=== PATIENT | female | born 1935 | race Caucasian/White ===

== ENCOUNTER 2018-11-06 16:28 | Observation (INO) | payer MEDICARE, OTHER ==
--- OUTSIDE RECORDS SUMMARY | 2018-11-06 16:33 | XMS REPORT | Continuity of Care Document ---
:1935 External Reference #:[id number] Author Name Minesh Medina Care Team Providers Name Role Phone Lavonne Warren MD Primary Care Physician Unavailable Payers Date Identification Numbers Payment Provider Subscriber Effective: 2001 Policy Number: [id number] Medicare Malina Arambula PayID: [id number] [address] [place] [address] Policy Number: [id number] [employer] Malina Arambula PayID: [id number] [address] [place] [address] Advance Directives Type Date Description Status Comment Other Directive 01/19/2017 Health Care Proxy Current and Verified Problems Active Problems Provider Date Major depressive disorder Wes Addison M.D.,FACP Onset: 10/15/2017 Obstructive sleep apnea syndrome Nicole Whalen DNP, RN, [facility]- Onset: Chronic obstructive lung disease Renetta Hernandez MD Onset: 08/04/2014 Note: vs asthma Scar emphysema Renetta Hernandez MD Onset: 11/13/2015 Allergic rhinitis Renetta Hernandez MD Onset: 11/13/2015 Mixed hyperlipidemia Wes Addison M.D.,FACP Onset: 10/15/2017 Candidiasis of the esophagus Lavonne Warren MD Onset: 10/06/2018 Note: diagnosed with biopsy Inactive Problems Acute sinusitis Renetta Hernandez MD Onset: 10/09/2015 Inactive: 10/15/2017 Chronic obstructive pulmonary disease with Renetta Hernandez MD Onset: 2015 (acute) exacerbation Inactive: 10/15/2017 Dyspnea Renetta Hernandez MD Onset: 08/04/2014 Inactive: 03/03/2018 Resolved Problems Chronic obstructive lung disease Renetta Hernandez MD Onset: 02/06/2015 Resolved: 03/03/2018 Acute upper respiratory infection, Kushal Mohan M.D. Onset: 11/17/2017 unspecified Resolved: 03/03/2018 Pulmonary emphysema Renetta Hernandez MD Onset: 08/04/2014 Resolved: 03/03/2018 Disorder of lung Renetta Hernandez MD Onset: 08/06/2015 Resolved: 03/03/2018 Family History Date Family Member(s) Observation Comments Father of heart failure at age 89 Father due to CHF () Mother for renal failure at age 85 Mother due to Renal Failure () Mother Obesity Mother Hypertension Mother Diabetes Type II Siblings None Social History Type Date Description Comments Sex Unknown Marital Status Lives With Alone Occupation Retired and volunteering Tobacco Use Start: Unknown Quit at age 41 ETOH Use 03/03/2018 Drinks 2 Alcoholic Beverages Per Day Tobacco Use Start: Unknown Patient is a former End: Unknown smoker Recreational Drug Use Denies Drug Use Tobacco Use Start: Unknown Light tobacco smoker smoked for 25 yrs (10 or fewer 1/2pk qd cigarettes/day) Smoking Status Reviewed: 10/26/18 Light tobacco smoker smoked for 25 yrs (10 or fewer 1/2pk qd cigarettes/day) Exercise Type/Frequency Walks daily short distance to walk dog Allergies, Adverse Reactions, Alerts Active Allergies Reaction Severity Comments Date Iodine 08/04/2014 Iodine 08/04/2014 Seasonal 08/04/2014 Animal Hair/Dander 08/04/2014 Inactive Allergies NKDA 08/04/2014 Medications Active Medications SIG Qnty Indications Ordering Date Provider Pantoprazole Sodium Take one tablet 60tabs B37.81 Lavonne Warren MD 2018 twice a day 40mg Tablets DR Ondansetron HCL one by mouth every 8 30tabs Lavonne Warren MD 10/08/2018 4mg hours as needed for Tablets nausea Meclizine HCL 1 tablet every 8 30tabs H81.10 Tatiana Davidson, 09/03/2018 25mg hours as needed for N.P. Tablets vertigo Amlodipine Besylate 1 by mouth every day 30tabs I10 Lavonne Warren MD 2018 10mg Tablets Candesartan 1 by mouth every day 30tabs Lavonne Warren MD 08/20/2018 Cilexetil 16mg Tablets Shingrix 0.5 milliliters 2units Wes Bain 03/03/2018 50mcg/0.5ML intramuscular now Iveth Addison,FACP Suspension Rec and 2-3 months later repeat Symbicort 2 puffs twice daily 12gm J44.9 Alley Cisneros, 11/09/2017 N.P. 160-4.5mcg/Act Aerosol Effexor XR 1 by mouth every day 30caps Wes Bain 11/27/2016 150mg Caps plus 75 mg tab Iveth Addison,FACP ER 24HR Proair HFA 2 puffs by mouth 25.5gm Wes Bain 11/27/2016 four times a day as Iveth Addison,FACP 108(90Base) mcg/Act needed Aerosol Abilify one by mouth at 30tabs Other Ordering 11/27/2016 2mg Tablets bedtime Provider Albuterol Sulfate puff every 6 hours Unknown 08/03/2014 as needed Spiriva Handihaler 1 inhalation by 90caps Renetta Hernandez, 08/03/2014 mouth every morning 18mcg Capsules Coq-10 1 by mouth every day Unknown 08/03/2014 100mg Capsules Singulair 1 by mouth every day 90tabs Wes Bain 08/03/2014 10mg Iveth Addison,FACP Tablets Adderall XR one tablet every 30caps Wes Bain 15mg Caps morning Iveth Addison,FACP ER 24HR Aspirin 1 by mouth every day Unknown 81mg Tablets Vitamin D3 by mouth everyday Unknown 1000Unit Tablets Effexor XR 1 by mouth every day Unknown 75mg Caps ER 24HR History Medications Ondansetron HCL take one tablet 30tabs Lavonne Warren MD 09/15/2018 - 4mg every 8 hours 10/07/2018 Tablets for nausea as needed Pantoprazole Sodium 2 by mouth 60tabs K21.9 Lavonne Warren MD 08/25/2018 - every day 10/13/2018 40mg Tablets Amlodipine Besylate 1 by mouth 30tabs I10 Lavonne Warren MD 08/19/2018 - 5mg every day 08/25/2018 Tablets Omeprazole 1 by mouth 14caps K21.9 Lavonne Warren MD 08/19/2018 - 20mg every day (not 09/03/[address] taking) Candesartan Cilexetil 1 by mouth 90tabs Lavonne Warren MD 12/25/2017 - every day 08/19/2018 16mg Tablets Amoxicillin/Clavulana 1 by mouth 20tabs J06.9 [place] 11/17/2017 - te Potassium twice a day Iveth Mohan 11/27/2017 500-125mg Tablets Oxybutynin Chloride take one tablet 60tabs Other Ordering 11/27/2016 - 5mg by mouth at hs Provider 01/15/2017 Tablets Omeprazole 1 by mouth bid 90caps Other Ordering 11/27/2016 - 20mg prn Provider 10/15/[address] Prednisone 20mg daily 14tabs J44.1 Renetta Hernadnez, 11/13/2015 - 20mg Tablets [place] 11/27/2016 Zithromax Z-Henry 2 tabs day#1, 1 6tabs J44.1 Renetta Hernandez, 11/13/2015 - 250mg tab daily for 4 MD 11/27/2016 Tablets days Dymista 1-2 spray twice 46gm J30.9 Renetta Hernandez, 11/13/2015 - 137-50mcg/Act a day [place] 11/27/2016 Suspension Cefuroxime Axetil 1 tab by mouth 20tabs J01.80 Renetta Hernandez, 10/09/2015 - 250mg twice a day [place] 11/27/2016 Tablets Vitamin D High 1 by mouth Unknown 08/05/2015 - Potency every day 11/27/2016 1000Unit Capsules Cymbalta 1 by mouth Unknown 08/05/2015 - 60mg Caps DR every day 11/27/2016 Part Wellbutrin SR 1 by mouth once Unknown 10/04/2014 - 150mg a day 11/27/2016 Tablets ER 12HR Symbicort 2 puffs twice a 60units J44.9 Renetta Hernandez, 08/04/2014 - day MD 11/27/2016 160-4.5mcg/Act Aerosol Effexor XR 1 by mouth Unknown 08/03/2014 - 150mg Caps every day 08/05/2015 ER 24HR Diovan 1 by mouth 90tabs Regla 08/03/2014 - 160mg Tablets every day RAMESH Orosco 12/25/2017 Aspir-81 1 by mouth Unknown 08/03/2014 - 81mg Tablets every day 11/27/2016 Vitamin B Complex 1 by mouth Unknown 08/03/2014 - every day 11/27/2016 Tablets Advair Diskus 1 puff by mouth Unknown 08/03/2014 - twice a day 10/15/2017 500-50mcg/Dose Aerosol Melatonin 1 by mouth Unknown 08/03/2014 - 5mg Capsules every night at 11/27/2016 bedtime Wellbutrin SR 1 by mouth Unknown 08/02/2014 - 150mg twice a day 10/04/2014 Tablets ER 12HR Co Q 10 1 by mouth Unknown - 100mg Capsules every day 10/15/2017 Medications Administered in Office Medication SIG Qnty Indications Ordering Provider Date Inj, Regadenoson, 0.1 MG Kevyn Sheehan M.D. 03/05/2012 Injection Technetium TC 99M Tetrofosmin, Kevyn Sheehan M.D. 03/05/2012 Per Unit Dose Up To 40 Millicuries Injection Immunizations CPT Code Status Date Vaccine Lot # 47818 Given 03/12/2018 Zoster (Shingles) Vaccine (HZV), Recombinant, Subunit, Adjuvanted 59318 Given 03/03/2018 Fluzone High Dose [id number] 65013 Given 01/15/2017 Pneumococcal Conjugate Vaccine 13 Valent For [id number] Intramuscular Use 17101 Given 02/04/2015 Influenza Virus 3Yrs & Over 27760 Given 10/20/2008 Pneumonia Vaccine Vital Signs Date Vital Result Comment 10/26/2018 2:09pm Height 66 inches 5'6" Weight 166.00 lb Heart Rate 80 /min BP Systolic Sitting 133 mmHg BP Diastolic Sitting 74 mmHg Body Temperature 97.3 F O2 % BldC Oximetry 95 % BMI (Body Mass Index) 26.8 kg/m2 10/13/2018 11:08am Height 66 inches 5'6" Weight 172.00 lb Heart Rate 80 /min BP Systolic Sitting 127 mmHg BP Diastolic Sitting 78 mmHg Body Temperature 97.0 F O2 % BldC Oximetry 94 % BMI (Body Mass Index) 27.8 kg/m2 09/07/2018 10:58am Height 66 inches 5'6" Weight 179.00 lb Heart Rate 80 /min BP Systolic Sitting 144 mmHg BP Diastolic Sitting 72 mmHg Body Temperature 96.9 F O2 % BldC Oximetry 97 % BMI (Body Mass Index) 28.9 kg/m2 09/03/2018 11:13am Height 66 inches 5'6" Weight 179.00 lb Heart Rate 83 /min BP Systolic 142 mmHg BP Diastolic 71 mmHg Body Temperature 96.7 F O2 % BldC Oximetry 98 % BMI (Body Mass Index) 28.9 kg/m2 08/25/2018 11:02am Height 66 inches 5'6" Weight 181.00 lb Heart Rate 85 /min BP Systolic Sitting 172 mmHg BP Diastolic Sitting 83 mmHg Body Temperature 96.9 F O2 % BldC Oximetry 98 % BMI (Body Mass Index) 29.2 kg/m2 08/19/2018 3:22pm Height 66 inches 5'6" Weight 185.12 lb Heart Rate 82 /min BP Systolic 184 mmHg 175/102 BP Diastolic 88 mmHg 175/102 Body Temperature 97.4 F O2 % BldC Oximetry 97 % BMI (Body Mass Index) 29.9 kg/m2 08/12/2018 11:10am Height 66 inches 5'6" Weight 183.00 lb Heart Rate 90 /min BP Systolic Sitting 158 mmHg BP Diastolic Sitting 85 mmHg Body Temperature 96.8 F O2 % BldC Oximetry 98 % BMI (Body Mass Index) 29.5 kg/m2 07/22/2018 11:21am Height 66 inches 5'6" Weight 188.25 lb Heart Rate 80 /min BP Systolic 142 mmHg BP Diastolic 60 mmHg Body Temperature 96.8 F O2 % BldC Oximetry 97 % BMI (Body Mass Index) 30.4 kg/m2 05/07/2018 1:24pm Height 66 inches 5'6" Weight 183.00 lb Heart Rate 88 /min BP Systolic Sitting 160 mmHg BP Diastolic Sitting 86 mmHg Respiratory Rate 18 /min O2 % BldC Oximetry 96 % on Ra BMI (Body Mass Index) 29.5 kg/m2 03/03/2018 2:59pm Height 66 inches 5'6" Weight 180.00 lb Heart Rate 79 /min BP Systolic Sitting 136 mmHg BP Diastolic Sitting 80 mmHg Body Temperature 98.3 F O2 % BldC Oximetry 95 % BMI (Body Mass Index) 29.0 kg/m2 02/04/2018 10:32am Height 67 inches 5'7" Weight 181.38 lb Heart Rate 68 /min BP Systolic Sitting 146 mmHg Lue regular cuff BP Diastolic Sitting 84 mmHg Lue regular cuff Respiratory Rate 12 /min O2 % BldC Oximetry 96 % BMI (Body Mass Index) 28.4 kg/m2 01/06/2018 11:10am Height 67 inches 5'7" Weight 175.00 lb Heart Rate 72 /min BP Systolic Sitting 116 mmHg BP Diastolic Sitting 86 mmHg Respiratory Rate 14 /min O2 % BldC Oximetry 97 % BMI (Body Mass Index) 27.4 kg/m2 Neck Circumference in inches 16.25 11/17/2017 1:07pm Height 67 inches 5'7" Weight 180.00 lb Heart Rate 97 /min BP Systolic Sitting 124 mmHg BP Diastolic Sitting 60 mmHg Body Temperature 97.4 F O2 % BldC Oximetry 94 % BMI (Body Mass Index) 28.2 kg/m2 11/09/2017 11:43am Height 67 inches 5'7" Weight 184.00 lb Heart Rate 72 /min BP Systolic Sitting 128 mmHg BP Diastolic Sitting 80 mmHg Respiratory Rate 14 /min O2 % BldC Oximetry 94 % BMI (Body Mass Index) 28.8 kg/m2 10/15/2017 10:58am Weight 184.00 lb Heart Rate 76 /min BP Systolic Sitting 142 mmHg BP Diastolic Sitting 70 mmHg BP Systolic Recheck 128 mmHg BP Diastolic Recheck 84 mmHg Body Temperature 98.1 F O2 % BldC Oximetry 97 % 07/15/2017 12:03pm Weight 186.00 lb Heart Rate 73 /min BP Systolic 134 mmHg BP Diastolic 82 mmHg Body Temperature 97.9 F O2 % BldC Oximetry 97 % 01/15/2017 11:05am Height 67.50 inches 5'7.50" Weight 189.00 lb Heart Rate 77 /min BP Systolic 132 mmHg BP Diastolic 70 mmHg Body Temperature 97.1 F O2 % BldC Oximetry 97 % BMI (Body Mass Index) 29.2 kg/m2 11/13/2015 2:07pm Heart Rate 82 /min BP Systolic Sitting 132 mmHg BP Diastolic Sitting 80 mmHg Respiratory Rate 16 /min O2 % BldC Oximetry 97 % 10/09/2015 10:51am Height 67.5 inches 5'7.50" Weight 185.00 lb reported Heart Rate 84 /min BP Systolic 150 mmHg BP Diastolic 84 mmHg Respiratory Rate 14 /min O2 % BldC Oximetry 96 % BMI (Body Mass Index) 28.5 kg/m2 08/06/2015 11:04am Height 67.5 inches 5'7.50" Heart Rate 77 /min BP Systolic 124 mmHg BP Diastolic 80 mmHg Respiratory Rate 14 /min O2 % BldC Oximetry 97 % 02/06/2015 10:59am Heart Rate 77 /min BP Systolic 162 mmHg BP Diastolic 80 mmHg Respiratory Rate 14 /min O2 % BldC Oximetry 98 % 10/05/2014 11:43am Heart Rate 76 /min BP Systolic Sitting 138 mmHg BP Diastolic Sitting 82 mmHg Respiratory Rate 20 /min O2 % BldC Oximetry 98 % 08/04/2014 3:37pm Height 67.5 inches 5'7.50" Weight 180.00 lb Heart Rate 78 /min BP Systolic Sitting 146 mmHg BP Diastolic Sitting 88 mmHg Respiratory Rate 20 /min Body Temperature 98.1 F O2 % BldC Oximetry 95 % BMI (Body Mass Index) 27.8 kg/m2 Neck Circumference in inches 15 Results Test Date Facility Test Result H/L Range Note Laboratory test 09/30/2018 [facility] Surgical SEE RESULT 1 , [address] [place] [address] [phone] Laboratory test 09/30/2018 [facility] Clotest SEE RESULT 3 , [address] [place] [address] [phone] CBC Auto Diff 08/12/2018 [facility] White Blood 10.4 10^3/uL N 3.5-10.[address] [place] [address] [phone] Red Blood Count 4.59 10^6/uL N 3.70-4.87 Hemoglobin 13.1 g/dL N 12.0-16.0 Hematocrit 41 % N 33-41 Mean Corpuscular Volume 88 fL N 80-97 Mean Corpuscular Hemoglobin 29 pg N 27-31 Mean Corpuscular HGB Conc 32 g/dL N 31-36 Red Cell Distribution Width 16 % High 10.5-15 Platelet Count 367 10^3/uL N 150-450 Mean Platelet Volume 8.0 fL N 7.4-10.4 Abs Neutrophils 7.6 10^3/uL N 1.5-7.7 Abs Lymphocytes 1.8 10^3/uL N 1.0-4.8 Abs Monocytes 1.0 10^3/uL High 0-0.8 Abs Eosinophils 0 10^3/uL N 0-0.6 Abs Basophils 0 10^3/uL N 0-0.2 Abs Nucleated RBC 0 10^3/uL Granulocyte % 72.6 % Lymphocyte % 17.2 % Monocyte % 9.4 % Eosinophil % 0.4 % Basophil % 0.4 % Nucleated Red Blood Cells % 0 Comp Metabolic Panel 08/12/2018 [facility] Sodium 144 mmol/L N 135-[address] [place] [address] [phone] Potassium 3.8 mmol/L N 3.5-5.0 Chloride 102 mmol/L N 101-111 Co2 Carbon Dioxide 30 mmol/L N 22-32 Anion Gap 12 mmol/L High 2-11 Glucose 102 mg/dL High 70-100 Blood Urea Nitrogen 16 mg/dL N 6-24 Creatinine 0.84 mg/dL N 0.51-0.95 BUN/Creatinine Ratio 19.0 N 8-20 Calcium 10.0 mg/dL N 8.6-10.3 Total Protein 6.9 g/dL N 6.4-8.9 Albumin 4.7 g/dL N 3.2-5.2 Globulin 2.2 g/dL N 2-4 Albumin/Globulin Ratio 2.1 N 1-3 Total Bilirubin 0.40 mg/dL N 0.2-1.0 Alkaline Phosphatase 47 U/L N 34-104 Alt 21 U/L N 7-52 Ast 21 U/L N 13-39 Egfr Non- 64.9 >60 Egfr 78.5 >60 5 Laboratory test 08/12/2018 [facility] TSH (Thyroid 2.05 mcIU/mL N 0.34-5.[address] Stim [place]orm) [place] [address] [phone] Vitamin B12 201 pg/mL N 180-914 6 Vitamin D Total 25(Oh) 65.3 ng/mL High 20-50 Thyroid Function 10/22/2017 [facility] Thyroid Stim 3.6 mIU/L 0.3-4.2 [address] [place] [address] [place] [address] [phone] Laboratory test 10/22/2017 [facility] Vitamin B12 451 pg/mL N 180-914 8 finding [address] [place] [address] [phone] Vitamin D Total 25(Oh) 34.0 ng/mL N 20-50 CBC Auto Diff 10/02/2017 [facility] White Blood 7.4 10^3/uL N 3.5-10.8 [address] [facility] [place] [address] [phone] Red Blood Count 4.72 10^6/uL N 4.0-5.4 Hemoglobin 12.5 g/dL N 12.0-16.0 Hematocrit 39 % N 35-47 Mean Corpuscular Volume 83 fL N 80-97 Mean Corpuscular Hemoglobin 27 pg N 27-31 Mean Corpuscular HGB Conc 32 g/dL N 31-36 Red Cell Distribution Width 16 % High 10.5-15 Platelet Count 371 10^3/uL N 150-450 Mean Platelet Volume 8.2 um3 N 7.4-10.4 Abs Neutrophils 4.4 10^3/uL N 1.5-7.7 Abs Lymphocytes 2.1 10^3/uL N 1.0-4.8 Abs Monocytes 0.6 10^3/uL N 0-0.8 Abs Eosinophils 0.2 10^3/uL N 0-0.6 Abs Basophils 0.1 10^3/uL N 0-0.2 Abs Nucleated RBC 0 10^3/uL Granulocyte % 59.7 % N 38-83 Lymphocyte % 29.1 % N 25-47 Monocyte % 8.2 % High 0-7 Eosinophil % 2.1 % N 0-6 Basophil % 0.9 % N 0-2 Nucleated Red Blood Cells % 0 Comp Metabolic Panel 10/02/2017 [facility] Sodium 142 mmol/L N 139-145 [address] [place] [address] [phone] Potassium 4.2 mmol/L N 3.5-5.0 Chloride 104 mmol/L N 101-111 Co2 Carbon Dioxide 28 mmol/L N 22-32 Anion Gap 10 mmol/L N 2-11 Glucose 109 mg/dL High 70-100 Blood Urea Nitrogen 18 mg/dL N 6-24 Creatinine 0.94 mg/dL N 0.51-0.95 BUN/Creatinine Ratio 19.1 N 8-20 Calcium 9.5 mg/dL N 8.6-10.3 Total Protein 6.8 g/dL N 6.4-8.9 Albumin 4.3 g/dL N 3.2-5.2 Globulin 2.5 g/dL N 2-4 Albumin/Globulin Ratio 1.7 N 1-3 Total Bilirubin 0.40 mg/dL N 0.2-1.0 Alkaline Phosphatase 48 U/L N 34-104 Alt 17 U/L N 7-52 Ast 18 U/L N 13-39 Egfr Non- 57.2 >60 Egfr 73.5 >60 9 Lipid Profile 10/02/2017 [facility] Triglycerides 152 mg/dL 10 (Trig/Chol/HDL) [address] [place] [address] [phone] Cholesterol 268 mg/dL 11 HDL Cholesterol 71.6 mg/dL 12 LDL Cholesterol 166 mg/dL 13 Quantiferon Gold 10/03/2015 [facility] M tuberculosis Negative N Negative TB [address] [place] [address] [phone] Tuberculosis Antigen Value 0.01 IU/mL N 14 CBC Auto Diff 10/03/2015 [facility] White Blood 10.0 10^3/uL N 3.5-10.[address] [place] [address] [phone] Red Blood Count 4.27 10^6/uL N 4.0-5.4 Hemoglobin 12.7 g/dL N 12.0-16.0 Hematocrit 39 % N 35-47 Mean Corpuscular Volume 91 fL N 80-97 Mean Corpuscular Hemoglobin 30 pg N 27-31 Mean Corpuscular HGB Conc 33 g/dL N 31-36 Red Cell Distribution Width 15 % N 10.5-15 Platelet Count 443 10^3/uL N 150-450 Mean Platelet Volume 8 um3 N 7.4-10.4 Abs Neutrophils 5.9 10^3/uL N 1.5-7.7 Abs Lymphocytes 2.7 10^3/uL N 1.0-4.8 Abs Monocytes 1.1 10^3/uL High 0-0.8 Abs Eosinophils 0.3 10^3/uL N 0-0.6 Abs Basophils 0.1 10^3/uL N 0-0.2 Abs Nucleated RBC 0.01 10^3/uL N Granulocyte % 58.6 % N 38-83 Lymphocyte % 26.9 % N 25-47 Monocyte % 10.7 % High 1-9 Eosinophil % 2.9 % N 0-6 Basophil % 0.9 % N 0-2 Nucleated Red Blood Cells % 0.1 N Laboratory test 10/03/2015 [facility] Anti Nuclear 0.3 U N 15 finding [address] [place] [address] [phone] Rheumatoid Factor 15 IU/mL Abnormal <15 16 Anca Panel For 10/03/2015 [facility] Myeloperoxidase AB 0.7 U Abnormal 17 Vasculitis [address] [place] [address] [phone] Proteinase 3 AB <0.2 U N 18 C-Anca Negative N Negative P-Anca Negative N Negative 19 Order 09/07/2014 [facility] [address] <pending> [address] [place] [address] [phone] 1 [id number] 2 SEE RESULT BELOW Name: MALINA ARAMBULA : [address]: Danielle Harkins MD Acct: [id number] Unit: [id number] AGE: 83 Location: [facility] Re09/30/18 SEX: F Status: DEP REF SPEC: [id number] ADIN: 09/30/18- SUBM DR: Danielle Kevin MD REQ: [id number] RECD: 09/30/181545 STATUS: RAZ REDDY DR: Lavonne Warren MD _ ORDERED: LEVEL 4/5, IMMUNO-FIRST/2, SPEC STAIN ORG COMMENTS: [id number] FINAL DIAGNOSIS 1. Small bowel, duodenum, distal, biopsies: -- Small bowel mucosa with normal villous architecture and no significant pathologic abnormality. 2. Small bowel, duodenum, proximal, biopsies: -- Small bowel mucosa with normal villous architecture and no significant pathologic abnormality. 3. Stomach, biopsies: -- Gastric antral and fundic gland mucosa with nonspecific mild diffuse chronic inflammation. -- No active gastritis or Helicobacter pylori-like organisms are identified on H E microscopy. See comment. 4. Gastroesophageal junction, biopsy: -- Gastroesophageal transition zone mucosa with moderate active gastritis. -- No Helicobacter pylori-like organisms are identified on H E microscopy. See comment. -- No goblet cell/intestinal metaplasia or dysplasia identified. -- No specific features of reflux esophagitis are identified. 5. Esophageal lesions, biopsy: --Nathan esophagitis. See comment.. Comment: A GMS stain performed with appropriate controls on part 5 demonstrates fungal hyphae and yeast forms invading into squamous epithelium. Immunochemical stains for Helicobacter pylori-like organisms were performed with appropriate controls on parts 3 and 4 and CONTINUED ON NEXT PAGE DEPARTMENT OF PATHOLOGY, [address] [place] [address] Manuel Capellan M.D. Director [facility] # [id number] RUN DATE: 10/05/18 [facility] LAB LIVE PAGE 2 Patient: MALINA ARAMBULA [id number] (Continued) SPECIMEN COMMENTS (Continued) are negative. CLINICAL HISTORY Abdominal pain; nausea and vomiting; weight loss PRE-OPERATIVE DIAGNOSIS POST-OPERATIVE DIAGNOSIS EGD: esophagus - whitish plaques - biopsy; nathan unknown; gastroesophageal junction 38 cm; z line 36 cm; biopsy; hiatal hernia 41 cm; gastric - diffuse erythema; linear erosions antrum; BEST test; biopsy; duodenum - proximal erythema biopsy; normal distal biopsy GROSS DESCRIPTION 1. The specimen is received in formalin labeled, Duodenal Biopsies (Distal) , and consists of a 0.8 x 0.5 by up to 0.2 cm aggregate of donato irregular soft tissue fragments which is submitted entirely in one cassette. 2. The specimen is received in formalin labeled, Duodenal Biopsies ( Proximal), and consists of a 0.6 x 0.4 x 0.2 cm aggregate of donato irregular soft tissue fragments which is submitted entirely in one cassette. 3. The specimen is received in formalin labeled, Gastric Biopsies, and consists of a 0.8 x 0.6 by up to 0.2 cm aggregate of donato-pink irregular soft tissue fragments which is submitted entirely in one cassette. 4. The specimen is received in formalin labeled, GE Junction Biopsies, and consists of a 0.8 x 0.5 x 0.2 cm aggregate of donato-white irregular soft tissue fragments which is submitted entirely in one cassette. 5. The specimen is received in formalin labeled, Biopsy Esophageal Lesions , and consists of a 0.6 x 0.5 x 0.1 cm aggregate of donato-white irregular soft tissue fragments which is submitted entirely in one cassette. Signed by and Reported on: Manuel Capellan MD 1555 END OF REPORT DEPARTMENT OF PATHOLOGY, [address] [place] [address] Manuel Capellan M.D. Director [facility] # [id number] 3 [id number] 4 SEE RESULT BELOW Name: MALINA ARAMBULA [place] : [address]: Danielle Harkins MD Acct: [id number] Unit: [id number] AGE: 83 Location: [facility] Re09/30/18 SEX: F Status: REG REF SPEC: [id number] ADIN: 09/30/18-[address]: Danielle Kevin MD REQ: [id number] RECD: 09/30/182341 STATUS: BRYANT REDDY DR: Lavonne Warren MD _ SOURCE: [facility]: ORDERED: Clotest COMMENTS: [id number] Procedure Result Reported Site Clotest Final 10/01/18721 ML Clotest Negative * ML - Main Lab . END OF REPORT DEPARTMENT OF PATHOLOGY, [address] [place] [address] Manuel Capellan M.D. Director [facility] # [id number] 5 Because ethnic data is not always readily available, this report includes an eGFR for both -Americans and non- Americans. The National Kidney Disease Education Program (NKDEP) does not endorse the use of the MDRD equation for patients that are not between the ages of 18 and 70, are , have extremes of body size, muscle mass, or nutritional status, or are non- or non-. According to the National Kidney Foundation, irrespective of diagnosis, the stage of the disease is based on the level of kidney function: Stage Description GFR(mL/min/1.73 m(2)) 1 Kidney damage with normal or decreased GFR 90 2 Kidney damage with mild decrease in GFR 60-89 3 Moderate decrease in GFR 30-59 4 Severe decrease in GFR 15-29 5 Kidney failure <15 (or dialysis) 6 Normal Range 180 to 914 Indeterminate Range 145 to 180 Deficient Range <145 7 Test Performed by: [address] [address] 8 Normal Range 180 to 914 Indeterminate Range 145 to 180 Deficient Range <145 9 Because ethnic data is not always readily available, this report includes an eGFR for both -Americans and non- Americans. The National Kidney Disease Education Program (NKDEP) does not endorse the use of the MDRD equation for patients that are not between the ages of 18 and 70, are , have extremes of body size, muscle mass, or nutritional status, or are non- or non-. According to the National Kidney Foundation, irrespective of diagnosis, the stage of the disease is based on the level of kidney function: Stage Description GFR(mL/min/1.73 m(2)) 1 Kidney damage with normal or decreased GFR 90 2 Kidney damage with mild decrease in GFR 60-89 3 Moderate decrease in GFR 30-59 4 Severe decrease in GFR 15-29 5 Kidney failure <15 (or dialysis) 10 Desirable: <150 Borderline High: 150-199 High: 200-499 Very High: >500 11 Desirable: <200 Borderline High: 200-239 High: >239 12 Low: <40 Desirable: 40-60 High: >60 13 Desirable: <100 Near Optimal: 100-129 Borderline High: 130-159 High: 160-189 Very High: >189 14 ADDITIONAL INFORMATION This is a qualitative test. The TB antigen IU/mL value is required for documentation on certain government reporting forms (e.g., Form I-693), but this value should not be used to monitor disease progression or response to therapy. Diagnosing or excluding tuberculosis disease, and assessing the probability of LTBI, require a combination of epidemiological, historical, medical, and diagnostic findings that should be taken into account when interpreting QuantiFERON-TB results. Test Performed by: [place] [address] Waste Disposal Plant Operator: Leonard Newman II, M.D., Ph.D. 15 REFERENCE VALUE <=1.0 (Negative) Test Performed by: [place] [address] [employer]posal Plant Operator: Leonard Newman II, M.D., Ph.D. 16 Test Performed by: [place] [address] [employer] Disposal Plant Operator: Leonard Newman II, M.D., Ph.D. 17 Interpretation: Equivocal (0.4-0.9) REFERENCE VALUE <0.4 (Negative) 18 REFERENCE VALUE <0.4 (Negative) Test Performed by: [place] [address] [employer] Disposal Plant Operator: Leonard Newman II, M.D., Ph.D. 19 Equivocal for anti-MPO antibody by solid-phase immunoassay. Neither cANCA nor pANCA patterns identified by immunofluorescence using ethanol-fixed neutrophils. Results do not appear to be consistent with ANCA-associated vasculitis. Unable to provide further interpretation without clinical information. Correlation with clinical presentation recommended. Test Performed by: [place] [address] [employer] Disposal Plant Operator: Leonard Newman II, M.D., Ph.D. Procedures Date Code Description Status 08/19/2018 91492 EKG Tracing & Interpretation Completed 03/17/2018 20525 Diffusing Capacity Completed 03/17/2018 23860 Plethysmography Determination Lung Volumes & Per Airway Completed Resist 03/17/2018 67771 Pulmonary Function><Bronchodil Completed 11/10/2017 89286 Polysomnography Sleep Staging 4+ Parameters Completed 02/02/2017 [id number] Mammogram Completed 02/01/2016 [id number] Mammogram Completed 09/07/2014 23300 Diffusing Capacity Completed 09/07/2014 51978 Pulmonary Stress Test Simple Completed 03/05/2012 52041 Stress Test Completed 03/05/2012 53932 Myocardial Perfusion Imaging Tomographic (Spect) Completed Multiple Studies 01/21/2012 87390189 Mammogram Completed 04/18/2004 79211251 Colonoscopy Completed 09/26/2003 22812 Treadmill Interp/Report Only Completed 09/26/2003 78439 Stress Test Supervsn W/Out I/R Completed Encounters Type Date Location Provider Dx Diagnosis Office Visit 10/13/2018 [facility] Joel Warren MD B37.81 Candidal 11:00a Medicine - [place] esophagitis Office Visit 09/07/2018 [facility] Joel Warren MD K21.9 Gastro- esophageal 11:00a Medicine - [place] reflux disease without esophagitis F41.9 Anxiety disorder, unspecified Office Visit 09/03/2018 11:00a [facility] Internal Tatiana Davidson, H81.10 Benign paroxysmal [facility] Visit 08/25/2018 11:20a [facility] Joel Warren MD I10 Essential Medicine - (primary) [place] hypertension K21.9 Gastro-esophageal reflux disease without esophagitis Office Visit 08/19/2018 3:20p [facility] Joel Warren I10 Essential ( [facility] K21.9 Gastro-esophageal reflux disease without esophagitis Office Visit 08/12/2018 [facility] Joel Warren, R53.83 Other fatigue 11:20a Lala DUMONT R63.4 Abnormal weight loss Office Visit 07/22/2018 Barry [facility] Joel Warren, R59.0 Localized 11:00a Lala DUMNOT enlarged lymph nodes Office Visit 05/07/2018 [facility] Renetta J44.9 Chronic 1:30p Services Of Gamaliel Hernandez MD obstructive pulmonary disease, unspecified G47.33 Obstructive sleep apnea (adult) (pediatric) Office Visit 03/03/2018 3:00p [facility] Internal Wes Bain Z00.01 Encounter for Medicine - Iveth Addison,[facility] general adult Suite R medical exam w abnormal findings G47.33 Obstructive sleep apnea (adult) (pediatric) J43.8 Other emphysema F33.1 Major depressive disorder, recurrent, moderate J45.41 Moderate persistent asthma with (acute) exacerbation R53.83 Other fatigue I10 Essential (primary) hypertension Z23 Encounter for immunization Office Visit 02/04/2018 [facility] Nicole G47.33 Obstructive sleep 10:30a Sleep Services Of JEREMY Whalen, RN, apnea (adult) [facility] STORAGE SOLUTIONS ARCHITECT-BC (pediatric) Z87.891 Personal history of nicotine dependence J44.9 Chronic obstructive pulmonary disease, unspecified Office Visit 01/06/2018 11:00a [facility]ology And Renetta G47.33 Obstructive sleep Sleep Services Of MD David apnea (adult) [facility] (pediatric) J44.9 Chronic obstructive pulmonary disease, unspecified Office Visit 11/17/2017 [facility] Internal Milaca J06.9 Acute upper 1:00p Medicine - Driss Mohan M.D. respiratory R infection, unspecified Office Visit 11/09/2017 Pulmonology And Alley Cisneros, R53.83 Other fatigue 11:30a Sleep Services Of Colt Alston J44.9 Chronic obstructive pulmonary disease, unspecified Office Visit 10/15/2017 11:20a [facility] Internal Wes Bain R53.83 Other fatigue Medicine - Dr[facility] I10 Essential (primary) hypertension G47.30 Sleep apnea, unspecified Office Visit 07/15/2017 11:50a [facility] Internal Regla I10 Essential (primary ) Medicine - Kw[place], CARE MANAGEMENT SPECIALIST hypertension Suite R J44.9 Chronic obstructive pulmonary disease, unspecified Office Visit 01/15/2017 11:30a [facility] Internal Regla J44.9 Chronic Medicine - [place] CARE MANAGEMENT SPECIALIST obstructive Suite R pulmonary disease, unspecified I10 Essential (primary) hypertension N39.3 Stress incontinence (female) (male) Z23 Encounter for immunization Office Visit 11/13/2015 11:30a Pulmonology And Renetta J44.1 Chronic Sleep Services Of MD David obstructive Shotblaster pulmonary disease w (acute) exacerbation J43.8 Other emphysema J30.9 Allergic rhinitis, unspecified Office Visit 10/09/2015 10:45a Pul[facility]ology And Renetta J44.9 Chronic Sleep Services Of MD David obstructive Shotblaster pulmonary disease, unspecified J01.80 Other acute sinusitis J98.4 Other disorders of lung Office Visit 08/06/2015 10:45a Pulmonology And Renetta J44.9 Chronic Sleep Services Of MD David obstructive Shotblaster pulmonary disease, unspecified J98.4 Other disorders of lung Office Visit 02/06/2015 10:45a [facility]ology And Renetta J44.9 Chronic Sleep Services Of MD David obstructive Shotblaster pulmonary disease, unspecified Office Visit 10/05/2014 11:30a [facility]ology And Renetta 496 COPD Airway Sleep Services Of MD David Obstruction [facility] Chronic Not Class Elsewhere 492.8 Emphysema Other Office Visit 08/04/2014 3:30p Pulmonology And Renetta 496 COPD Airway Sleep Services Of MD David Obstruction [facility] Chronic Not Class Elsewhere 492.8 Emphysema Other 786.05 Shortness Of Breath Office Visit 11/20/2008 10:15a DO Not Use Tatiana Varn, 789.03 Pain Abdominal [facility]-Brady N.P. Right Lower Quadrant Office Visit 10/24/2008 11:30a DO Not Use Tatiana Varn, 789.03 Pain Abdominal [facility] N.P. Right Lower Quadrant 599.70 Hematuria, Unspecified Plan of Treatment Future Appointment(s):11/04/2018 10:20 am - Lavonne Warren MD at [facility] Internal Medicine - [facility]11/08/2018 1:30 pm - Renetta Hernandez MD at [facility]10/26/2018 - Lavonne Warren, MDR63.4 Abnormal weight lossFollow up:Pt has an abdominal CT scan scheduled for next week. Please change it to this week
--- OUTSIDE RECORDS SUMMARY | 2018-11-06 16:33 | XMS REPORT | Continuity of Care Document ---
:1935 External Reference #:[id number] Author Name Minesh Medina Care Team Providers Name Role Phone Lavonne Warren MD Primary Care Physician Unavailable Payers Date Identification Numbers Payment Provider Subscriber Effective: 2001 Policy Number: [id number] Medicare Malina Arambula PayID: [id number] [address] [place] [address] Policy Number: [id number] [employer] Malina Arambula PayID: [id number] [address] [place] [address] Advance Directives Type Date Description Status Comment Other Directive 01/19/2017 Health Care Proxy Current and Verified Problems Active Problems Provider Date Major depressive disorder Wes Addison M.D.,FACP Onset: 10/15/2017 Obstructive sleep apnea syndrome Nicole Whalen DNP, RN, [facility]- Onset: Chronic obstructive lung disease Renetta Hernandez [...] fewer 1/2pk qd cigarettes/day) Smoking Status Reviewed: 11/02/18 Light tobacco smoker smoked for 25 yrs [...] Tablets Amoxicillin/Clavulana 1 by mouth 20tabs J06.9 [facility]outh [facility] [place] 11/17/2017 - te Potassium twice a day Iveth Mohan 11/27/2017 500-125mg Tablets Oxybutynin Chloride take one tablet 60tabs Other Ordering 11/27/2016 - 5mg by mouth at hs Provider 01/15/2017 Tablets Omeprazole 1 by mouth bid 90caps Other Ordering 11/27/2016 - 20mg prn Provider 10/15/[address] Prednisone 20mg daily 14tabs J44.1 Renetta Hernandez, 11/13/2015 - 20mg Tablets ND 11/27/2016 Zithromax Z-Henry 2 tabs day#1, 1 6tabs J44.1 Renetta Hernandez, 11/13/2015 - 250mg tab daily for 4 MD 11/27/2016 Tablets days Dymista 1-2 spray twice 46gm J30.9 Renetta Hernandez, 11/13/2015 - 137-50mcg/Act a day ND 11/27/2016 Suspension Cefuroxime Axetil 1 tab by mouth 20tabs J01.80 Renetta Hernandez, 10/09/2015 - 250mg twice a day ND 11/27/2016 Tablets Vitamin D High 1 by [...] CPT Code Status Date Vaccine Lot # [id number] Given 03/12/2018 Zoster (Shingles) Vaccine (HZV), Recombinant, Subunit, Adjuvanted 49708 Given 03/03/2018 Fluzone High Dose [id number] 91203 Given 01/15/2017 Pneumococcal Conjugate Vaccine 13 Valent For [id number] Intramuscular Use 60496 Given 02/04/2015 Influenza Virus 3Yrs & Over 08538 Given 10/20/2008 Pneumonia Vaccine Vital Signs Date Vital Result Comment 11/02/2018 11:00am Height 66 inches 5'6" Weight 162.50 lb Heart Rate 92 /min BP Systolic 104 mmHg BP Diastolic 69 mmHg Body Temperature 96.9 F O2 % BldC Oximetry 96 % BMI (Body Mass Index) 26.2 kg/m2 10/26/2018 2:09pm Height 66 inches 5'6" Weight [...] Date Facility Test Result H/L Range Note BUN/Creat/GFR 10/28/2018 [facility] Blood Urea 14 mg/dL N 8-[address] [place] [address] [phone] Poc Creatinine 1.2 mg/dL N 0.6-1.3 1 Poc BUN/Creatinine Ratio 11.7 N 8-20 Egfr Non- 43.0 >60 Egfr 52.0 >60 2 Laboratory test 09/30/2018 [facility] Surgical SEE RESULT 3 , [address] [place] [address] [phone] Laboratory test 09/30/2018 [facility] Clotest SEE RESULT 5 , [address] [place] [address] [phone] CBC Auto Diff 08/12/2018 [facility] White Blood 10.4 N 3.5-[address] Count 10^3/uL 0.8 [place] [address] [phone] Red Blood Count 4.59 10^6/uL N 3.70-4.87 [...] Cells % 0 Comp Metabolic Panel 08/12/2018 [facility] Sodium 144 mmol/L N 135-[address] [place] [address] [phone] Potassium 3.8 mmol/L N 3.5-5.0 Chloride 102 [...] Egfr Non- 64.9 >60 Egfr 78.5 >60 7 Laboratory test 08/12/2018 [facility] TSH (Thyroid 2.05 mcIU/mL N 0.34-5.[address] Stim [place]) [place] [address] [phone] Vitamin B12 201 pg/mL N 180-028 8 Vitamin D Total 25(Oh) 65.3 ng/mL High 20-50 Thyroid Function 10/22/2017 [facility] Thyroid Stim 3.6 mIU/L 0.3-4.2 [address] [place] [address] [phone] Laboratory test 10/22/2017 [facility] Vitamin B12 451 pg/mL N 180-910 [address] [place] [address] [phone] Vitamin D Total 25(Oh) 34.0 ng/mL N 20-50 CBC Auto Diff 10/02/2017 [facility] White Blood 7.4 10^3/uL N 3.5-10.[address] [place] [address] [phone] Red Blood Count 4.72 10^6/uL N 4.0-5.4 [...] Cells % 0 Comp Metabolic Panel 10/02/2017 [facility] Sodium 142 mmol/L N 139-[address] [place] [address] [phone] Potassium 4.2 mmol/L N 3.5-5.0 Chloride 104 [...] Egfr Non- 57.2 >60 Egfr 73.5 >60 11 Lipid Profile 10/02/2017 [facility] Triglycerides 152 mg/dL 12 (Trig/Chol/HDL) [address] [place] [address] [phone] Cholesterol 268 mg/dL 13 HDL Cholesterol 71.6 mg/dL 14 LDL Cholesterol 166 mg/dL 15 Anca Panel For 10/03/2015 [facility] Myeloperoxidase AB 0.7 U Abnormal [address] [place] [address] [phone] Proteinase 3 AB <0.2 U N 17 C-Anca Negative N Negative P-Anca Negative N Negative 18 Quantiferon Gold 10/03/2015 [facility] M tuberculosis Negative N Negative TB [address] [place] [address] [phone] Tuberculosis Antigen Value 0.01 IU/mL N 19 CBC Auto Diff 10/03/2015 [facility] White Blood 10.0 10^3/uL N 3.5-10.[address] [place] [address] [phone] Red Blood Count 4.27 10^6/uL N 4.0-5.4 [...] Cells % 0.1 N Laboratory test 10/03/2015 [facility] Anti Nuclear 0.3 U N 20 finding [address] [facility] [place] [address] [phone] Rheumatoid Factor 15 IU/mL Abnormal <15 21 Order 09/07/2014 [facility] 6 Minute [address] <pending> [address] [place] [address] [phone] 1 Health Sciences Manager: [id number] 2 Because ethnic data is not always readily [...] 15-29 5 Kidney failure <15 (or dialysis) 3 [id number] SEE RESULT BELOW Name: MALINA ARAMBULA : [address]: Danielle Harkins MD Acct: [id number] Unit: [id number] AGE: 83 Location: [facility] Re09/30/18 SEX: F Status: DEP REF SPEC: [id number] ADIN: 09/30/18- SUBM DR: Danielle Kevin MD REQ: [id number] RECD: 09/30/18-1545 STATUS: RAZ REDDY DR: Lavonne Warren MD _ ORDERED: LEVEL 4/5, IMMUNO-FIRST/2, SPEC STAIN ORG COMMENTS: [id number] FINAL DIAGNOSIS 1. Small bowel, duodenum, distal, [...] CONTINUED ON NEXT PAGE DEPARTMENT OF PATHOLOGY, [address] [place] [address] Manuel Capellan M.D. Director [facility] # [id number] RUN DATE: 10/05/18 [facility] LAB LIVE PAGE 2 Patient: MALINA ARAMBULA [id number] (Continued) SPECIMEN COMMENTS (Continued) are negative. CLINICAL [...] 1555 END OF REPORT DEPARTMENT OF PATHOLOGY, [address] [place] [address] Manuel Capellan M.D. Director [facility] # [id number] 5 [id number] SEE RESULT BELOW Name: MALINA ARAMBULA Ivy : [address]: Danielle Harkins MD Acct: [id number] Unit: [id number] AGE: 83 Location: [facility] Re09/30/18 SEX: F Status: REG REF SPEC: [id number] ADIN: 09/30/18-1232 [facility] DR: Danielle Kevin MD REQ: [id number] RECD: 09/30/18-4950 STATUS: BRYANT REDDY DR: Lavonne Warren MD _ S[facility] ORDERED: Nilson COMMENTS: [id number] Procedure Result Reported Site Clotest Final 10/01/18721 ML Clotest Negative * ML - Main Lab . END OF REPORT DEPARTMENT OF PATHOLOGY, [address] [place] [address] Manuel Capellan M.D. Director [facility] # [id number] 7 Because ethnic data is not always readily [...] 15-29 5 Kidney failure <15 (or dialysis) 8 Normal Range 180 to 914 Indeterminate Range 145 to 180 Deficient Range <145 9 Test Performed by: [address] [address] 10 Normal Range 180 to 914 Indeterminate Range 145 to 180 Deficient Range <145 11 Because ethnic data is not always readily [...] 15-29 5 Kidney failure <15 (or dialysis) 12 Desirable: <150 Borderline High: 150-199 High: 200-499 Very High: >500 13 Desirable: <200 Borderline High: 200-239 High: >239 14 Low: <40 Desirable: 40-60 High: >60 15 Desirable: <100 Near Optimal: 100-129 Borderline High: 130-159 High: 160-189 Very High: >189 16 Interpretation: Equivocal (0.4-0.9) REFERENCE VALUE <0.4 (Negative) 17 REFERENCE VALUE <0.4 (Negative) Test Performed by: [place] [address] Cosmetic Sales Advisor: Leonard Newman II, M.D., Ph.D. 18 Equivocal for anti-MPO antibody by solid-phase immunoassay. Neither cANCA nor pANCA patterns identified by immunofluorescence using ethanol-fixed neutrophils. Results do not appear to be consistent with ANCA-associated vasculitis. Unable to provide further interpretation without clinical information. Correlation with clinical presentation recommended. Test Performed by: [place] [address] Cosmetic Sales Advisor: Leonard Newman II, M.D., Ph.D. 19 ADDITIONAL INFORMATION This is a qualitative test. [...] when interpreting QuantiFERON-TB results. Test Performed by: [place] [address] Cosmetic Sales Advisor: Leonard Newman II, M.D., Ph.D. 20 REFERENCE VALUE <=1.0 (Negative) Test Performed by: [place] [address] Cosmetic Sales Advisor: Leonard Newman II, M.D., Ph.D. 21 Test Performed by: [place] [address] Cosmetic Sales Advisor: Leonard Newman II, M.D., Ph.D. Procedures Date Code Description Status 08/19/2018 64853 EKG Tracing & Interpretation Completed 03/17/2018 25563 Diffusing Capacity Completed 03/17/2018 63124 Plethysmography Determination Lung Volumes & Per Airway Completed Resist 03/17/2018 25846 Pulmonary Function><Bronchodil Completed 11/10/2017 02127 Polysomnography Sleep Staging 4+ Parameters Completed 02/02/2017 [id number] Mammogram Completed 02/01/2016 14115312 Mammogram Completed 09/07/2014 09562 Diffusing Capacity Completed 09/07/2014 68465 Pulmonary Stress Test Simple Completed 03/05/2012 08309 Stress Test Completed 03/05/2012 27373 Myocardial Perfusion Imaging Tomographic (Spect) Completed Multiple Studies 01/21/2012 62374987 Mammogram Completed 04/18/2004 38740283 Colonoscopy Completed 09/26/2003 32719 Treadmill Interp/Report Only Completed 09/26/2003 45547 Stress Test Supervsn W/Out I/R Completed Encounters Type Date Location Provider Dx Diagnosis Office Visit 10/26/2018 [facility] Internal Lavonne Warren MD R63.4 Abnormal weight 2:00p Medicine - Anaob loss Office Visit 10/13/2018 [facility] Internal Lavonne Warren MD B37.81 Candidal 11:00a Medicine - [place] esophagitis Office Visit 09/07/2018 [facility] Internal Lavonne Warren MD K21.9 Gastro- esophageal 11:00a [facility] without esophagitis F41.9 Anxiety disorder, unspecified Office Visit 09/03/2018 11:00a [facility] Internal Tatiana Davidson, H81.10 Benign paroxysmal Medicine - N.P. vertigo, [facility] unspecified ear Office Visit 08/25/2018 11:20a [facility] Internal Lavonne Warren MD I10 Essential Medicine - (primary) [facility] hypertension K21.9 Gastro-esophageal reflux disease without esophagitis Office Visit 08/19/2018 3:20p [facility] Internal Lavonne Warren, I10 Essential ( primary) [facility] K21.9 Gastro-esophageal reflux disease without esophagitis Office Visit 08/12/2018 [facility]Not[facility] Internal Lavonne Warren, R53.83 Other fatigue 11:20a Lala DUMONT R63.4 Abnormal weight loss Office Visit 07/22/2018 [facility] Internal Lavonne Warren, R59.0 Localized 11:00a Lala DUMONT enlarged lymph nodes Office Visit 05/07/2018 [facility] Renetta J44.9 Chronic 1:30p Services Of Gamaliel Hernandez MD obstructive pulmonary disease, unspecified G47.33 Obstructive sleep apnea (adult) (pediatric) Office Visit 03/03/2018 3:00p [facility] Internal Wes Bain Z00.01 Encounter for Susanne Addison M.D.,FACP general adult Suite R medical exam w abnormal findings G47.33 Obstructive sleep apnea (adult) (pediatric) J43.8 Other emphysema F33.1 Major depressive disorder, recurrent, moderate J45.41 Moderate persistent asthma with (acute) exacerbation R53.83 Other fatigue I10 Essential (primary) hypertension Z23 Encounter for immunization Office Visit 02/04/2018 [facility]ology And Nicole G47.33 Obstructive sleep 10:30a Sleep Services Of JEREMY Whalen, RN, apnea (adult) [facility] EXAMINATION SUPERVISOR-BC (pediatric) Z87.891 Personal history of nicotine dependence J44.9 Chronic obstructive pulmonary disease, unspecified Office Visit 01/06/2018 11:00a Pulmonology And Renetta G47.33 Obstructive sleep Sleep Services Of MD David apnea (adult) [facility] (pediatric) J44.9 Chronic obstructive pulmonary disease, unspecified Office Visit 11/17/2017 [facility] Internal Mouth Of [place] J06.9 Acute upper 1:00p Medicine - Suite Iveth Mohan respiratory R infection, unspecified Office Visit 11/09/2017 Pulmonology And Alley Cisneros, R53.83 Other fatigue 11:30a Sleep Services Of Colt [facility] J44.9 Chronic obstructive pulmonary disease, unspecified Office Visit 10/15/2017 11:20a [facility] Internal Wes Bain R53.83 Other fatigue Medicine - Suite Iveth Addison,FACP R I10 Essential (primary) hypertension G47.30 Sleep apnea, unspecified Office Visit 07/15/2017 11:50a [facility] Internal Regla I10 Essential (primary ) Medicine - [place], SANITATION SUPERINTENDENT hypertension Suite R J44.9 Chronic obstructive pulmonary disease, unspecified Office Visit 01/15/2017 11:30a [facility] Internal Regla J44.9 Chronic Medicine - [place], SANITATION SUPERINTENDENT obstructive Suite R pulmonary disease, unspecified I10 Essential (primary) hypertension N39.3 Stress incontinence (female) (male) Z23 Encounter for immunization Office Visit 11/13/2015 11:30a Pulmonology And Renetta J44.1 Chronic Sleep Services Of MD David obstructive Dedenter pulmonary disease w (acute) exacerbation J43.8 Other emphysema J30.9 Allergic rhinitis, unspecified Office Visit 10/09/2015 10:45a Pulmonology And Renetta J44.9 Chronic Sleep Services Of MD David obstructive Dedenter pulmonary disease, unspecified J01.80 Other acute sinusitis J98.4 Other disorders of lung Office Visit 08/06/2015 10:45a Pulmonology And Renetta J44.9 Chronic Sleep Services Of MD David obstructive [facility] pulmonary disease, unspecified J98.4 Other disorders of lung Office Visit 02/06/2015 10:45a Pulmonology And Renetta J44.9 Chronic Sleep Services Of MD David obstructive [place]enter pulmonary disease, unspecified Office Visit 10/05/2014 11:30a Pulmonology And Renetta 496 COPD Airway Sleep Services Of MD David Obstruction [facility] Chronic Not Class Elsewhere 492.8 Emphysema Other Office Visit 08/04/2014 3:30p Pulmonology And Renetta 496 COPD Airway Sleep Services Of MD David Obstruction [facility] Chronic Not Class Elsewhere 492.8 Emphysema Other 786.05 Shortness Of Breath Office Visit 11/20/2008 10:15a DO Not Use Tatiana Varn, 789.03 Pain Abdominal [facility] N.P. Right Lower Quadrant Office Visit 10/24/2008 11:30a DO Not Use Tatiana Varn, 789.03 Pain Abdominal [facility] N.P. Right Lower Quadrant 599.70 Hematuria, Unspecified Plan of Treatment Future Appointment(s):11/08/2018 1:30 pm - Renetta Hernandez MD at [facility]11/02/2018 - Lavonne Warren, MDR63.4 Abnormal weight lossComments:Please do try to force yourself to eatYou are going to touch base with psychiatry
--- OUTSIDE RECORDS SUMMARY | 2018-11-06 16:33 | XMS REPORT | Continuity of Care Document ---
:1935 External Reference #:[id number] Author Name Danielle Harkins MD Address [address] [place] [address] [place] [address] Care Team Providers Name Role Phone Lavonne Warren M.D. Care Team Information Cro Unavailable Lavonne Warren M.D. Primary Care Physician Unavailable Payers Date Identification Numbers Payment Provider Subscriber Policy Number: [id number] Medicare Malina Davenportl PayID: [id number] [facility] [address] [place] [address] Policy Number: [id number] [employer] Number: [id number] [address] PayID: [id number] [place] [address] Problems Active Problems Provider Date Asthma without status asthmaticus Delaney Silva PA-C Onset: 2018 Essential hypertension Delaney Silva PA-C Onset: 09/28/2018 Weight decreased Delaney Silva PA-C Onset: 09/28/2018 Abdominal pain Delaney Silva PA-C Onset: 09/28/2018 Nausea and vomiting Delaney Silva PA-C Onset: 09/28/2018 Social History Type Date Description Comments Sex Unknown Tobacco Use Start: Unknown End: Unknown Patient is a former smoker Smoking Status Reviewed: 09/28/18 Patient is a former smoker Allergies, Adverse Reactions, Alerts Active Allergies Reaction Severity Comments Date Iodine 09/28/2018 Medications Active Medications SIG Qnty Indications Ordering Provider Date Prednisone one by mouth 3tabs Danielle 10/12/2018 50mg Tablets every 13 hours MD Shahana before, one by mouth every 7 hours before and one by mouth q1 hour before ct Fluconazole take 2 tablets 15tabs Danielle 10/10/2018 200mg Tablets on day one and MD Shahana then one tablet daily until gone. Amlodipine Besylate take 1 tablet by Unknown 10mg mouth daily Tablets Pantoprazole Sodium take 1 tablet by Unknown 40mg mouth daily Tablets Candesartan Cilexetil take 1 tablet by Unknown mouth daily 16mg Tablets Ondansetron HCL take 1 tablet by Unknown 4mg mouth every 8 Tablets hours if needed for nausea Meclizine HCL take 1 tablet by Unknown 25mg mouth every 8 Tablets hours if needed for Vertigo Amphetamine-Dextroamph take 1 capsule Unknown et ER by mouth every 30mg Caps ER 24HR morning Venlafaxine HCL ER 1 by mouth every Unknown 150mg day With A 75 MG Caps ER 24HR Tablet Proair HFA Unknown 108(90Base) mcg/Act Aerosol Montelukast Sodium Unknown 10mg Tablets Symbicort Unknown 160-4.5mcg/Act Aerosol Abilify 1 by mouth every Unknown 2mg Tablets day Spiriva Handihaler Unknown 18mcg Capsules Aspirin 1 by mouth every Unknown 81mg Tablets DR Vital Signs Date Vital Result Comment 09/28/2018 11:34am Height 67 inches 5'7" Weight 172.00 lb BP Systolic 124 mmHg BP Diastolic 76 mmHg Heart Rate 90 /min BMI (Body Mass Index) 26.9 kg/m2 Results Test Date Facility Test Result H/L Range Note BUN/Creat/GFR 10/28/2018 [facility] [place] Blood Urea Nitrogen 14 mg/dL N 8-26 Poc Creatinine 1.2 mg/dL N 0.6-1.3 1 [facility]oc BUN/Creatinine Ratio 11.7 N 8-20 Egfr Non- 43.0 >60 Egfr 52.0 >60 2 Laboratory test 09/30/2018 [facility] Surgical SEE RESULT 3, 4 finding Interface Order BELOW Laboratory test 09/30/2018 [facility] Clotest SEE RESULT 5, 6 finding BELOW CMP(!) 08/12/2018 [facility] Sodium(!) <pending> Potassium(!) <pending> Chloride Serum/Plasma(!) <pending> Carbon Dioxide Ser/Plasm(!) <pending> BUN - Urea Nitrogen(!) <pending> Calcium Ser/Plasma Mass/Vol(!) <pending> Creatinine Serum Mass/Vol(!) <pending> Glucose Serum(!) <pending> BUN/Creatinine Ratio(!) <pending> Albumin Serum/Plasma(!) <pending> Alkaline Phosphatase(!) <pending> Bilirubin Total Mass/Vol(!) <pending> Ast - Sgot <pending> Alt - SGPT <pending> Protein Total <pending> Laboratory test 08/12/2018 [facility] Vitamin B12 Ser <pending> finding Mass/Vol TSH Thyroid Stim Hormone(!) <pending> Vitamin D 08/12/2018 [facility] Z#Other Observations <pending> CBC W/Auto 08/12/2018 [facility] White Blood Count Ser <pending> Differential(!) Auto CNT RBC Red Blood Count <pending> Hemoglobin Blood <pending> Hematocrit <pending> MCV (Corpuscular Volume) <pending> MCH (Corpuscular Hemoglobin) <pending> MCHC (Corpuscular Hemog Conc) <pending> RDW <pending> Platelet Count Blood Auto CNT <pending> MPV <pending> Lymph% <pending> [place]% <pending> Neutrophil % <pending> Absolute Lymphocytes <pending> Absolute Monocytes <pending> Absolute Neutrophils <pending> 1 Ui Application Developer: [id number] 2 Because ethnic data is not always [...] 5 Kidney failure <15 (or dialysis) 3 [id number] 4 SEE RESULT BELOW Name: MALINA ROBERTS : [address]: Danielle Harkins MD Acct: [id number] Unit: [id number] AGE: 83 Location: [facility] Re09/30/18 SEX: F Status: DEP REF SPEC: [id number] ADIN: 09/30/18- SUBM DR: Danielle Kevin MD REQ: [id number] RECD: 09/30/18-1545 STATUS: RAZ REDDY DR: Lavonne Warren MD _ ORDERED: LEVEL 4/5, IMMUNO-FIRST/2, SPEC STAIN ORG COMMENTS: [id number] FINAL DIAGNOSIS 1. Small bowel, duodenum, distal, [...] CONTINUED ON NEXT PAGE DEPARTMENT OF PATHOLOGY, [address] [place] [address] Manuel Capellan M.D. Director [facility] # [id number] RUN DATE: 10/05/18 [facility] LAB LIVE PAGE 2 Patient: MALINA ROBERTS [id number] (Continued) SPECIMEN COMMENTS (Continued) are negative. CLINICAL [...] by and Reported on: Manuel Capellan MD 155 END OF REPORT DEPARTMENT OF PATHOLOGY, [address] [place] [address] Manuel Capellan M.D. Director [facility] # [id number] SEE RESULT BELOW Name: MALINA ROBERTS : [address]: Danielle Harkins MD Acct: [id number] Unit: [id number] AGE: 83 Location: [facility] Re09/30/18 SEX: F Status: DEP REF SPEC: [id number] ADIN: 09/30/18- SUBM DR: Danielle Kevni MD REQ: [id number] RECD: 09/30/181545 STATUS: RAZ REDDY DR: Lavonne Warren MD _ ORDERED: LEVEL 4/5, IMMUNO-FIRST/2, SPEC STAIN ORG COMMENTS: [id number] FINAL DIAGNOSIS 1. Small bowel, duodenum, distal, [...] CONTINUED ON NEXT PAGE DEPARTMENT OF PATHOLOGY, [address] [place] [address] Manuel Capellan M.D. Director [facility] # [id number] RUN DATE: 10/05/18 [facility] LAB LIVE PAGE 2 Patient: RALFMALINA [id number] (Continued) SPECIMEN COMMENTS (Continued) are negative. CLINICAL [...] 1555 END OF REPORT DEPARTMENT OF PATHOLOGY, [address] [place] [address] Manuel Capellan M.D. Director [facility] # [id number] 5 [id number] SEE RESULT BELOW Name: MALINA ROBERTS: [address]: Danielle Harkins MD Acct: [id number] Unit: [id number] AGE: 83 Location: [facility] Re09/30/18 SEX: F Status: REG REF SPEC: [id number] ADIN: 09/30/18-[address]: Danielle Kevin MD REQ: [id number] RECD: 09/30/185 STATUS: COMP OTHR DR: Lavonne Warren MD _ SOURCE: GAS ANTRUM SPDESC: ORDERED: Clotest COMMENTS: [id number] Procedure Result Reported Site Clotest Final 10/01/18721 ML Clotest Negative * - [facility] . END OF REPORT DEPARTMENT OF PATHOLOGY, [address] [place] [address] Manuel Capellan M.D. Director [facility] # [id number] SEE RESULT BELOW Name: CHEMA ROBERTSGORGE Haynes : [address]: Danielle Harkins MD Acct: [id number] Unit: [id number] AGE: 83 Location: [facility] Re09/30/18 SEX: F Status: REG REF SPEC: [id number] ADIN: 09/30/18-12[address] [facility] [address]: Danielle Kevin MD REQ: [id number] RECD: 09/30/180105 STATUS: BRYANT REDDY DR: Lavonne Warren MD _ SOURCE: GAS [facility]UM [facility]: ORDERED: Clotagustín COMMENTS: [id number] Procedure Result Reported Site Clotest Final 10/01/18- 721 ML Clotest Negative * ML - Main Lab . END OF REPORT DEPARTMENT OF PATHOLOGY, [address] [place] [address] Manuel Capellan M.D. Director [facility] # [id number] Procedures Date Code Description Status 09/30/2018 95724 Moderate Sedation Services; Same Phys Each Additional 15 Completed Mins 09/30/2018 82914 EGD+Biopsy Single Or Multiple Completed 04/18/2004 14566 Colonoscopy Completed Encounters Type Date Location Provider Dx Diagnosis Office Visit 09/28/2018 Gastroenterology Delaney Murcia R11.2 Nausea with 11:30a [facility] AMARIS Silva vomiting, unspecified R10.10 Upper abdominal pain, unspecified R63.4 Abnormal weight loss Plan of Treatment Future Appointment(s):11/05/2018 10:30 am - Delaney Silva PA-C at Gastroenterology [facility]09/28/2018 - SHEKHAR Solitario CR11.2 Nausea with vomiting, qtlslfzhlxeW45.10 Upper abdominal pain, tpsemdfxwbgL88.4 Abnormal weight loss
--- OUTSIDE RECORDS SUMMARY | 2018-11-06 16:34 | XMS REPORT | Continuity of Care Document ---
:1935 External Reference #:[id number] Author Name Myesha Welch Care Team Providers Name Role Phone Lavonne Warren MD Primary Care Physician Unavailable Payers Date Identification Numbers Payment Provider Subscriber Effective: 2001 Policy Number: [id number] Medicare Malina Haynes Ralf PayID: [id number] [address] [place] [address] Policy Number: [id number] [employer] Malina Padillakol PayID: [id number] [address] [place] [address] Advance Directives Type Date Description Status Comment Other Directive 01/19/2017 Health Care Proxy Current and Verified Problems Active Problems Provider Date Major depressive disorder Wes Addison M.D.,FACP Onset: 10/15/2017 Obstructive sleep apnea syndrome Nicole Whalen DNP, RN, [facility]- Onset: Chronic obstructive lung disease Renetta Hernandez [...] fewer 1/2pk qd cigarettes/day) Smoking Status Reviewed: 10/13/18 Light tobacco smoker smoked for 25 yrs [...] MD 2018 twice a day 40mg Tablets Ondansetron HCL one by mouth every 8 [...] Tablets Adderall XR one tablet every 30caps eWs Bain 15mg Caps morning Iveth Addison,FACP ER 24HR Aspirin 1 by mouth every day Unknown 81mg Tablets DR Vitamin D3 by mouth everyday Unknown 1000Unit [...] Tablets Amoxicillin/Clavulana 1 by mouth 20tabs J06.9 Kushal 11/17/2017 - te Potassium twice a day Iveth Mohan 11/27/2017 500-125mg Tablets Oxybutynin Chloride take one tablet 60tabs Other Ordering 11/27/2016 - 5mg by mouth at hs Provider 01/15/2017 Tablets Omeprazole 1 by mouth bid 90caps Other Ordering 11/27/2016 - 20mg prn Provider 10/15/2017 Capsules Prednisone 20mg daily 14tabs J44.1 Renetta Hernandez, 11/13/2015 - 20mg Tablets IN 11/27/2016 Zithromax Z-Henry 2 tabs day#1, 1 6tabs J44.1 Renetta Hernandez, 11/13/2015 - 250mg tab daily for 4 IN 11/27/2016 Tablets days Dymista 1-2 spray twice 46gm J30.9 Renetta Hernandez, 11/13/2015 - 137-50mcg/Act a day IN 11/27/2016 Suspension Cefuroxime Axetil 1 tab by mouth 20tabs J01.80 Renetta Hernandez, 10/09/2015 - 250mg twice a day IN 11/27/2016 Tablets Vitamin D High 1 by mouth Unknown 08/05/2015 - Potency every day 11/27/2016 1000Unit Capsules Cymbalta 1 by mouth Unknown 08/05/2015 - 60mg Caps DR every day 11/27/2016 Part Wellbutrin SR 1 by mouth once Unknown 10/04/2014 - 150mg a day 11/27/2016 Tablets ER 12HR Symbicort 2 puffs twice a 60units J44.9 Renetta Hernandez, 08/04/2014 - day IN 11/27/2016 160-4.5mcg/Act Aerosol Effexor XR 1 by mouth Unknown 08/03/2014 - 150mg Caps every day 08/05/2015 ER 24HR Diovan 1 by mouth 90tabs Regla 08/03/2014 - 160mg Tablets every day Orosco, CELLAR HAND 12/25/2017 Aspir-81 1 by mouth Unknown 08/03/2014 [...] CPT Code Status Date Vaccine Lot # [id number] Given 03/12/2018 Zoster (Shingles) Vaccine (HZV), Recombinant, Subunit, Adjuvanted 08788 Given 03/03/2018 Fluzone High Dose [id number] 66571 Given 01/15/2017 Pneumococcal Conjugate Vaccine 13 Valent For [id number] Intramuscular Use 59983 Given 02/04/2015 Influenza Virus 3Yrs & Over 05899 Given 10/20/2008 Pneumonia Vaccine Vital Signs Date Vital Result Comment 10/13/2018 11:08am Height 66 inches 5'6" Weight [...] Result H/L Range Note Laboratory test 09/30/2018 [facility] Surgical SEE RESULT 1 , [address] [place] [address] [phone] Laboratory test 09/30/2018 [facility] Clotest SEE RESULT 3 , [address] [place] [address] [phone] CBC Auto Diff 08/12/2018 [facility] White Blood 10.4 10^3/uL N 3.5-10.[address] [place] [address] [phone] Red Blood Count 4.59 10^6/uL N 3.70-4.87 [...] Cells % 0 Comp Metabolic Panel 08/12/2018 [facility] Sodium 144 mmol/L N 135-[address] [place] [address] [phone] Potassium 3.8 mmol/L N 3.5-5.0 Chloride 102 [...] Egfr 78.5 >60 5 Laboratory test 08/12/2018 [facility] TSH (Thyroid 2.05 mcIU/mL N 0.34-5.[address] Stim Horm) [place] [address] [phone] Vitamin B12 201 pg/mL N 180-886 6 Vitamin D Total 25(Oh) 65.3 ng/mL High 20-50 Thyroid Function 10/22/2017 [facility] Thyroid Stim 3.6 mIU/L 0.3-4.[address] [place] [address] [phone] Laboratory test 10/22/2017 [facility] Vitamin B12 451 pg/mL N 180-[address] [place] [address] [phone] Vitamin D Total 25(Oh) 34.0 ng/mL N 20-50 CBC Auto Diff 10/02/2017 [facility] White Blood 7.4 10^3/uL N 3.5-10.[address] [place] [address] [phone] Red Blood Count 4.72 10^6/uL N 4.0-5.4 [...] Cells % 0 Comp Metabolic Panel 10/02/2017 [facility] Sodium 142 mmol/L N 139-145 [address] [place] [address] [phone] Potassium 4.2 mmol/L N 3.5-5.0 Chloride 104 [...] Egfr 73.5 >60 9 Lipid Profile 10/02/2017 [facility] Triglycerides 152 mg/dL 10 (Trig/Chol/HDL) [address] [place] [address] [phone] Cholesterol 268 mg/dL 11 HDL Cholesterol 71.6 mg/dL 12 LDL Cholesterol 166 mg/dL 13 Quantiferon Gold 10/03/2015 [facility] M tuberculosis Negative N Negative TB [address] [place] [address] [phone] Tuberculosis Antigen Value 0.01 IU/mL N 14 CBC Auto Diff 10/03/2015 [facility] White Blood 10.0 10^3/uL N 3.5-10.[address] [place] [address] [phone] Red Blood Count 4.27 10^6/uL N 4.0-5.4 [...] Cells % 0.1 N Laboratory test 10/03/2015 [facility] Anti Nuclear 0.3 U N [address] [place] [address] [phone] Rheumatoid Factor 15 IU/mL Abnormal <15 16 Anca Panel For 10/03/2015 [facility] Myeloperoxidase AB 0.7 U Abnormal [address] [place] [address] [phone] Proteinase 3 AB <0.2 U N 18 C-Anca Negative N Negative P-Anca Negative N Negative 19 Order 09/07/2014 [facility] 6 Minute Walk <pending> [address] [place] [address] [phone] 1 [id number] 2 SEE RESULT BELOW Name: MALINA ARAMBULA Ivy : [address]: Danielle Harkins MD Acct: [id number] Unit: [id number] AGE: 83 Location: [facility] Re09/30/18 SEX: F Status: DEP REF SPEC: [id number] ADIN: 09/30/18- SUBM DR: Danielle Kevin MD REQ: [id number] RECD: 09/30/182974 STATUS: RAZ REDDY DR: Lavonne Warren MD _ ORDERED: LEVEL 4/5, IMMUNO-FIRST/2, SPEC STAIN ORG COMMENTS: [id number] FINAL DIAGNOSIS 1. Small bowel, duodenum, distal, [...] CONTINUED ON NEXT PAGE DEPARTMENT OF PATHOLOGY, [address] [place] [address] Manuel Capellan M.D. Director [facility] # [id number] RUN DATE: 10/05/18 [facility] LAB LIVE PAGE 2 Patient: MALINA ARAMBULA [id number] (Continued) SPECIMEN COMMENTS (Continued) are negative. CLINICAL [...] 1555 END OF REPORT DEPARTMENT OF PATHOLOGY, [address] [place] [address] Manuel Capellan M.D. Director [facility] # [id number] SEE RESULT BELOW Name: MALINA ARAMBULA Ivy : [address]: Danielle Harkins MD Acct: [id number] Unit: [id number] AGE: 83 Location: [facility] Re09/30/18 SEX: F Status: REG REF SPEC: [id number] ADIN: 09/30/18-[address]: Danielle Kevin MD REQ: [id number] RECD: 09/30/18-5637 STATUS: BRYANT REDDY DR: Lavonne Warren MD _ SOURCE: GAS ANTRUM SPDESC: ORDERED: Clotest COMMENTS: [id number] Procedure Result Reported Site Clotest Final 10/01/18721 ML Clotest Negative * ML - Main Lab . END OF REPORT DEPARTMENT OF PATHOLOGY, [address] [place] [address] Manuel Capellan M.D. Director [facility] # [id number] 5 Because ethnic data is not always [...] Deficient Range <145 7 Test Performed by: [address] [address] 8 Normal Range 180 to 914 Indeterminate [...] when interpreting QuantiFERON-TB results. Test Performed by: [facility] - [address] [address] Spice Blender: Leonard Newman II, M.D., Ph.D. 15 REFERENCE VALUE <=1.0 (Negative) Test Performed by: [address] [address] Spice Blender: Leonard Newman II, M.D., Ph.D. 16 Test Performed by: [facility] [place] [address] Spice Blender: Leonard Newman II, M.D., Ph.D. 17 Interpretation: Equivocal (0.4-0.9) REFERENCE VALUE <0.4 (Negative) 18 REFERENCE VALUE <0.4 (Negative) Test Performed by: [place] [address] Spice Blender: Leonard Newman II, M.D., Ph.D. 19 Equivocal for anti-MPO antibody by solid-phase immunoassay. Neither cANCA nor pANCA patterns identified by immunofluorescence using ethanol-fixed neutrophils. Results do not appear to be consistent with ANCA-associated vasculitis. Unable to provide further interpretation without clinical information. Correlation with clinical presentation recommended. Test Performed by: [address] [address] Spice Blender: Leonard Newman II, M.D., Ph.D. Procedures Date Code Description Status 08/19/2018 28745 EKG Tracing & Interpretation Completed 03/17/2018 65835 Diffusing Capacity Completed 03/17/2018 94289 Plethysmography Determination Lung Volumes & Per Airway Completed Resist 03/17/2018 68252 Pulmonary Function><Bronchodil Completed 11/10/2017 31145 Polysomnography Sleep Staging 4+ Parameters Completed 02/02/2017 31653049 Mammogram Completed 02/01/2016 30384779 Mammogram Completed 09/07/2014 41713 Diffusing Capacity Completed 09/07/2014 24605 Pulmonary Stress Test Simple Completed 03/05/2012 83478 Stress Test Completed 03/05/2012 80559 Myocardial Perfusion Imaging Tomographic (Spect) Completed Multiple Studies 01/21/2012 44463597 Mammogram Completed 04/18/2004 10569058 Colonoscopy Completed 09/26/2003 11740 Treadmill Interp/Report Only Completed 09/26/2003 71327 Stress Test Supervsn W/Out I/R Completed Encounters Type Date Location Provider Dx Diagnosis Office Visit 09/07/2018 [facility] Lavonne Warren MD K21.9 Gastro- esophageal 11:00a Medicine reflux disease without esophagitis F41.9 Anxiety disorder, unspecified Office Visit 09/03/2018 11:00a [facility] Tatiana Davidson, H81.10 Benign paroxysmal Medicine N.P. vertigo, unspecified ear Office Visit 08/25/2018 11:20a [facility] Lavonne Warren MD I10 Essential Medicine (primary) hypertension K21.9 Gastro-esophageal reflux disease without esophagitis Office Visit 08/19/2018 3:20p [facility] Lavonne Warren I10 Essential ( primary) Medicine hypertension K21.9 Gastro-esophageal reflux disease without esophagitis Office Visit 08/12/2018 11:20a [facility] Lavonne Warren MD R53.83 Other fatigue Medicine - Satinder R63.4 Abnormal weight loss Office Visit 07/22/2018 11:00a [facility] Lavonne Warren, R59.0 Localized Medicine - enlarged lymph [place] nodes Office Visit 05/07/2018 1:30p Pulmonology And Renetta J44.9 Chronic Sleep Services Of MD David obstructive [facility] pulmonary disease, unspecified G47.33 Obstructive sleep apnea (adult) (pediatric) Office Visit 03/03/2018 3:00p [facility] Wes Bain Z00.01 Encounter for Medicine - Iveth Addison,FACP general adult [address] medical exam w abnormal findings G47.33 Obstructive sleep apnea (adult) (pediatric) J43.8 Other emphysema F33.1 Major depressive disorder, recurrent, moderate J45.41 Moderate persistent asthma with (acute) exacerbation R53.83 Other fatigue I10 Essential (primary) hypertension Z23 Encounter for immunization Office Visit 02/04/2018 Pulmonology And Nicole G47.33 Obstructive sleep 10:30a Sleep Services Of JEREMY Whalen, RN, apnea (adult) [facility] INTERVENTIONAL NEURORADIOLOGIST-BC (pediatric) Z87.891 Personal history of nicotine dependence J44.9 Chronic obstructive pulmonary disease, unspecified Office Visit 01/06/2018 11:00a Pulmonology And Renetta G47.33 Obstructive sleep Sleep Services Of MD David apnea (adult) [facility] (pediatric) J44.9 Chronic obstructive pulmonary disease, unspecified Office Visit 11/17/2017 [facility] Internal Kushal J06.9 Acute upper 1:00p Medicine - Vivi Mohan M.D. respiratory Rd infection, unspecified Office Visit 11/09/2017 Pulmonology And Alley Cisneros, R53.83 Other fatigue 11:30a Sleep Services Of N.PLeonard [facility] J44.9 Chronic obstructive pulmonary disease, unspecified Office Visit 10/15/2017 11:20a [facility] Internal Wes Bain R53.83 Other fatigue Medicine - Vivi Addison M.D.,FACP Rd I10 Essential (primary) hypertension G47.30 Sleep apnea, unspecified Office Visit 07/15/2017 11:50a [facility] Internal Regla I10 Essential (primary ) Medicine - Kwesi, CELLAR HAND hypertension [address] J44.9 Chronic obstructive pulmonary disease, unspecified Office Visit 01/15/2017 11:30a [facility] Internal Regla J44.9 Chronic Medicine - Orosco, CELLAR HAND obstructive [address] pulmonary disease, unspecified I10 Essential (primary) hypertension N39.3 Stress incontinence (female) (male) Z23 Encounter for immunization Office Visit 11/13/2015 11:30a Pulmonology And Renetta J44.1 Chronic [facility] MD David obstructive Insurance Customer Service Specialist pulmonary disease w (acute) exacerbation J43.8 Other emphysema J30.9 Allergic rhinitis, unspecified Office Visit 10/09/2015 10:45a Pulmonology And Renetta J44.9 [facility] MD David obstructive Insurance Customer Service Specialist pulmonary disease, unspecified J01.80 Other acute sinusitis J98.4 Other disorders of lung Office Visit 08/06/2015 10:45a Pulmonology And Renetta J44.9 Chronic [facility] Of MD David obstructive [facility] pulmonary disease, unspecified J98.4 Other disorders of lung Office Visit 02/06/2015 10:45a Pulmonology And Renetta J44.9 Chronic [facility] Of MD David obstructive [facility] pulmonary disease, unspecified Office Visit 10/05/2014 11:30a Pulmonology And Renetta 496 COPD Airway Sleep Services Of MD David Obstruction [facility] Chronic Not Class Elsewhere 492.8 Emphysema Other Office Visit 08/04/2014 3:30p Pulmonology And Renetta 496 COPD Airway [facility] MD David Obstruction [facility] Chronic Not Class Elsewhere 492.8 Emphysema Other 786.05 Shortness Of Breath Office Visit 11/20/2008 10:15a DO Not Use Tatiana Varn, 789.03 Pain Abdominal [facility] Right Lower Quadrant Office Visit 10/24/2008 11:30a DO Not Use Tatiana Varn, 789.03 Pain Abdominal [facility] N.[facility] Right Lower Quadrant 599.70 Hematuria, Unspecified Plan of Treatment Future Appointment(s):11/04/2018 10:20 am - Lavonne Warren MD at [facility] Internal Vbsitpvy99/24/2019 1:30 pm - Renetta Hernandez MD at [facility]/13/2018 - Lavonne Warren MDB37.81 Candidal esophagitisNew Medication:Pantoprazole Sodium 40 mg - Take one tablet twice a dayFollow up:F/U 3 weeks Please help reschedule the CT scan to following week
--- OUTSIDE RECORDS SUMMARY | 2018-11-06 16:34 | XMS REPORT | Continuity of Care Document ---
:1935 External Reference #:[id number] Author Name Danielle Harkins MD Address [address] [place] [address] [place] [address] Care Team Providers Name Role Phone Lavonne Warren M.D. Care Team Information Take Away Man Unavailable Lavonne Warren M.D. Primary Care Physician Unavailable Payers Date Identification Numbers Payment Provider Subscriber Policy Number: [id number] Medicare Malina Roberts PayID: [id number] [facility] [address] [place] [address] Policy Number: [id number] [employer] Malina Roberts Group Number: [id number] [address] PayID: [id number] [place] [address] Problems Active Problems Provider Date Asthma without [...] Medications SIG Qnty Indications Ordering Provider Date Amlodipine Besylate take 1 tablet by Unknown 10mg mouth daily Tablets Pantoprazole Sodium take 1 tablet by Unknown 40mg mouth daily Tablets DR Candesartan Cilexetil take 1 tablet by Unknown mouth daily 16mg Tablets Ondansetron HCL take 1 tablet by Unknown 4mg mouth every 8 Tablets hours if needed for nausea Meclizine HCL take 1 tablet by Unknown 25mg mouth every 8 Tablets hours if needed for Vertigo Amphetamine-Dextroamph take 1 capsule by Unknown et ER mouth every 30mg Caps ER 24HR morning Venlafaxine HCL ER 1 by mouth every Unknown 150mg day With A 75 MG Caps ER 24HR Tablet Proair HFA Unknown 108(90Base) mcg/Act Aerosol Montelukast Sodium Unknown 10mg Tablets Symbicort Unknown 160-4.5mcg/Act Aerosol Abilify 1 by mouth every Unknown 2mg Tablets day Spiriva Handihaler Unknown 18mcg Capsules Aspirin 1 by mouth every Unknown 81mg Tablets DR day Vital Signs Date Vital Result Comment 09/28/2018 11:34am Height 67 inches 5'7" Weight 172.00 lb BP Systolic 124 mmHg BP Diastolic 76 mmHg Heart Rate 90 /min BMI (Body Mass Index) 26.9 kg/m2 Results Test Date Facility Test Result H/L Range Note Laboratory test 09/30/2018 [facility] [place] Surgical SEE RESULT 1, 2 finding Interface Order BELOW Laboratory test 09/30/2018 [facility] [place] Clotest SEE RESULT 3, 4 finding BELOW CMP(!) 08/12/2018 [facility] Sodium(!) [...] Auto CNT <pending> MPV <pending> Lymph% <pending> Hyde% <pending> Neutrophil % <pending> Absolute Lymphocytes <pending> Absolute Monocytes <pending> Absolute Neutrophils <pending> 1 [id number] SEE RESULT BELOW Name: MALINA ROBERTS Ivy : [address]: Danielle Harkins MD Acct: [id number] Unit: [id number] AGE: 83 Location: [facility] Re09/30/18 SEX: F Status: DEP REF SPEC: [id number] ADIN: 09/30/18- SUBM DR: Danielle Kevin MD REQ: [id number] RECD: 09/30/181545 STATUS: RAZ REDDY DR: Lavonne Warren MD _ ORDERED: LEVEL 4/5, IMMUNO-FIRST/2, SPEC STAIN ORG COMMENTS: [id number] FINAL DIAGNOSIS 1. Small bowel, duodenum, distal, [...] CONTINUED ON NEXT PAGE DEPARTMENT OF PATHOLOGY, [address] [place] [address] Manuel Capellan M.D. Director [facility] # [id number] RUN DATE: 10/05/18 [facility] LAB LIVE PAGE 2 Patient: MALINA [id number] (Continued) SPECIMEN COMMENTS (Continued) are negative. CLINICAL [...] 1555 END OF REPORT DEPARTMENT OF PATHOLOGY, [address] [place] [address] Manuel Capellan M.D. Director [facility] # [id number] SEE RESULT BELOW Name: MALINA ROBERTS : [address]: Danielle Harkins MD Acct: [id number] Unit: [id number] AGE: 83 Location: [facility] Re09/30/18 SEX: F Status: DEP REF SPEC: [id number] ADIN: 09/30/18- SUBM DR: Danielle Kevin MD REQ: [id number] RECD: 09/30/18-0656 STATUS: RAZ REDDY DR: Lavonne Warren MD _ ORDERED: LEVEL 4/5, IMMUNO-FIRST/2, SPEC STAIN ORG COMMENTS: [id number] FINAL DIAGNOSIS 1. Small bowel, duodenum, distal, [...] CONTINUED ON NEXT PAGE DEPARTMENT OF PATHOLOGY, [address] [place] [address] Manuel Capellan M.D. Director [facility] # [id number] RUN DATE: 10/05/18 [facility] LAB LIVE PAGE 2 Patient: ARMANDOMALINA L [id number] (Continued) SPECIMEN COMMENTS (Continued) are negative. CLINICAL [...] 1555 END OF REPORT DEPARTMENT OF PATHOLOGY, [address] [place] [address] Manuel Capellan M.D. Director [facility] # [id number] 4 SEE RESULT BELOW Name: ARMANDOMALINA L : [address]: Danielle Harkins MD Acct: [id number] Unit: [id number] AGE: 83 Location: [facility] Re09/30/18 SEX: F Status: REG REF SPEC: [id number] ADIN: 09/30/18-12[address] [facility] [address]: Danielle Kevin MD REQ: [id number] RECD: 09/30/184209 STATUS: BRYANT REDDY DR: Lavonne Warren MD _ SOURCE: GAS ANTRUM SPDESC: ORDERED: Clotest COMMENTS: [id number] Procedure Result Reported Site Clotest Final 10/01/18- 721 ML Clotest Negative * ML - Main Lab . END OF REPORT DEPARTMENT OF PATHOLOGY, [address] [place] [address] Manuel Capellan M.D. Director [facility] # [id number] SEE RESULT BELOW Name: MALINA ROBERTS : [address]: Danielle Harkins MD Acct: [id number] Unit: [id number] AGE: 83 Location: [facility] Re09/30/18 SEX: F Status: REG REF SPEC: [id number] ADIN: 09/30/18-1232 [facility] [address]: Danielle Kevin MD REQ: [id number] RECD: 09/30/18-3340 STATUS: BRYANT REDDY DR: Lavonne Warren MD _ SOURCE: GAS ANTRUM SPDESC: ORDERED: Clotest COMMENTS: [id number] Procedure Result Reported Site Clotest Final 10/01/18721 ML Clotest Negative * ML - Main Lab . END OF REPORT DEPARTMENT OF PATHOLOGY, [address] [place] [address] Manuel Capellan M.D. Director [facility] # [id number] Procedures Date Code Description Status 04/18/2004 42545 Colonoscopy Completed Encounters Type Date Location Provider Dx Diagnosis Office Visit 09/28/2018 [facility] Delaney Murcia R11.2 Nausea with 11:30a [facility] AMARIS Silva vomiting, unspecified R10.10 Upper abdominal pain, unspecified R63.4 Abnormal weight loss
[2018-11-06] MEDS ORDERED: NS 0.9% 1000 ML** 1,000 ML IV ONE (16:52)
[2018-11-06] MEDS ORDERED: Ondansetron INJ* 2 MG/ML VIAL IV ONE ×2 (16:52→22:39)
--- NOTE | 2018-11-06 16:55 | ED ---
GI/ HPI - HPI Summary HPI Summary: This patient is an 83 year old female brought in by EMS accompanied by her daughters presenting to [facility] with a chief complaint of nausea, chronic "dry heaving", decreased po intake, 20 pound weight loss and mild lower abdominal pain x 2 months. The patient decided to come here today due to new onset vomiting and diarrhea starting today. Diagnosed recently with an upper GI fungal infection, finished a course of Diflucan 2 weeks ago, with no change in symptoms. Patient is being followed by GI Dr. Douglas Kevin for same symptoms, with recent endoscopy, and recent CT abdomen and pelvis. Gastritis and Macarena esophagitis noticed on endoscopy. Patient also complains of of 2 months ago with subsequent depression.She denies SI. Her daughters state she is malnourished and would like her to be admitted with worsening of symptoms, which they state is following the advice of her GI provider. The patient denies fever, cough, sore throat, CP, SOB, urine symptoms, vaginal symptoms. Medical history COPD, thyroid, HTN, vertigo. Abdominal surgical history is appendectomy , partial hysterectomy. - History of Current Complaint Chief Complaint: EDAbdPain Time Seen by Provider: 11/06/18 16:43 Stated Complaint: GENERAL ILLNESS PER EMS Hx Obtained From: Patient Onset/Duration: Started Weeks Ago Timing: Intermittent Severity: Mild Current Severity: Mild Pain Intensity: 3 Location of Pain: RLQ, Flank Pain Characteristics: Cramping Associated Signs and Symptoms: Positive: Weakness, Nausea, Vomiting, Weight Loss , Diarrhea, Change in Appetite, Abdominal Pain Aggravating Factor(s): Nothing Alleviating Factor(s): Nothing - Allergy/Home Medications Allergies/Adverse Reactions: Allergies Allergy/AdvReac Type Severity Reaction Status Date / Time Iodine and Iodide Containing Allergy Intermediate Wheezing Verified 11/06/18 18: 50 Produc Seasonal Allergies Allergy Mild Congestion Uncoded 10/28/18 13:43 PMH/Surg Hx/FS Hx/Imm Hx Endocrine/Hematology History: Denies: Hx Anticoagulant Therapy, Hx Diabetes, Hx Thyroid Disease Cardiovascular History: Reports: Hx Hypertension Denies: Hx Pacemaker/ICD Respiratory History: Reports: Hx Asthma, Hx Chronic Obstructive Pulmonary Disease (COPD) - Asthma/COPD GI History: Denies: Hx Ulcer History: Denies: Hx Renal Disease Sensory History: Denies: Hx Eye Injury Opthamlomology History: Denies: Hx Eye Prosthesis EENT History: Denies: Hx Deafness Neurological History: Denies: Hx Dementia, Hx Seizures Psychiatric History: Denies: Hx Substance Abuse - Cancer History Cancer Type, Location and Year: Melanoma removed from left upper chest 8 years ago Hx Chemotherapy: No Hx Radiation Therapy: No - Surgical History Surgery Procedure, Year, and Place: hysterectomy,breast reduction, gastric hernia, Tonsillectomy, adniodectomy, APPENDECTOMY Infectious Disease History: No Infectious Disease History: Denies: Hx Hepatitis, Hx Human Immunodeficiency Virus (HIV), History Other Infectious Disease, Traveled Outside the [place] in Last 30 Days - Family History Known Family History: Positive: Non-Contributory - Social History Alcohol Use: Daily Alcohol Amount: wine or liquor- 2-3 drinks per day Substance Use Type: Reports: None Smoking Status (MU): Former Smoker Type: Cigarettes Amount Used/How Often: 1/2 ppd Length of Time of Smoking/Using Tobacco: 25 years Review of Systems Constitutional: Negative Eyes: Negative Positive: Other - Dry mouth Cardiovascular: Negative Respiratory: Negative Positive: Abdominal Pain, Vomiting - And dry heaving, Diarrhea, Nausea Negative: dysuria, discharge, frequency, hematuria, urgency Musculoskeletal: Negative Skin: Negative Neurological: Other - Dizziness Positive: Weakness Positive: Depressed All Other Systems Reviewed And Are Negative: Yes Physical Exam - Summary Physical Exam Summary: Abdomen soft nontender. Lung sounds clear to auscultation bilaterally. Jaw. No peripheral edema. Triage Information Reviewed: Yes Vital Signs On Initial Exam: Initial Vitals Temp Pulse Resp BP Pulse Ox 97.4 F 82 17 142/69 96 11/06/18 16:35 11/06/18 16:35 11/06/18 16:35 11/06/18 16:35 11/06/18 16:35 Vital Signs Reviewed: Yes Appearance: Positive: Well-Appearing, No Pain Distress Skin: Positive: Warm, Dry Head/Face: Positive: Normal Head/Face Inspection Eyes: Positive: Normal, EOMI, DONOVAN ENT: Positive: Normal ENT inspection, Pharynx normal, TMs normal Neck: Positive: Supple, Nontender Respiratory/Lung Sounds: Positive: Clear to Auscultation, Breath Sounds Present Cardiovascular: Positive: Normal, RRR Abdomen Description: Positive: Nontender, Soft Musculoskeletal: Positive: Normal Neurological: Positive: Normal, Sensory/Motor Intact, Alert, Oriented to Person Place, Time Psychiatric: Positive: Normal, Affect/Mood Appropriate AVPU Assessment: Alert - Chase Coma Scale Best Eye Response: 4 - Spontaneous Best Motor Response: 6 - Obeys Commands Best Verbal Response: 5 - Oriented Coma Scale Total: 15 Diagnostics - Vital Signs Vital Signs Temp Pulse Resp BP Pulse Ox 11/06/18 16:35 97.4 F 82 17 142/69 96 - Laboratory Result Diagrams: 11/07/18 08:54 11/07/18 08:54 Lab Statement: Any lab studies that have been ordered have been reviewed, and results considered in the medical decision making process. GIGU Course/Dx - Course Course Of Treatment: This patient is an 83 year old female brought in by EMS accompanied by her daughters presenting to [facility] with a chief complaint of nausea, chronic "dry heaving", decreased po intake, 20 pound weight loss and mild lower abdominal pain x 2 months. The patient decided to come here today due to new onset vomiting and diarrhea starting today. Diagnosed recently with an upper GI fungal infection, finished a course of Diflucan 2 weeks ago, with no change in symptoms. Patient is being followed by GI Dr. Douglas Kevin for same symptoms, with recent endoscopy, and recent CT abdomen and pelvis. Gastritis and Macarena esophagitis noticed on endoscopy. Patient also complains of of 2 months ago with subsequent depression.She denies SI. Her daughters state she is malnourished and would like her to be admitted with worsening of symptoms, which they state is following the advice of her GI provider. The patient denies fever, cough, sore throat, CP, SOB, urine symptoms , vaginal symptoms. Medical history COPD, thyroid, HTN, vertigo. Abdominal surgical history is appendectomy, partial hysterectomy. Physical exam:Abdomen soft nontender. Lung sounds clear to auscultation bilaterally. Jaw. No peripheral edema. Vital signs within normal limits. WBC 19.3, up from 14.8 on 11/02. Platelets elevated. Anion gap 13. Creatinine 1.2. UA indicates likely UTI. Chest x-ray unremarkable. CT abdomen and pelvis nondefinitive. Discussed patient and change in labs with GI Dr. Rodriguez, who recommended observation given change in white count and new onset symptoms of vomiting and diarrhea. Family concerned and wishes patient to be admitted. Rocephin 1 g IV administered for possible UTI. Admitted to hospitalist for observation. - Diagnoses Provider Diagnoses: Nausea vomiting and diarrhea Discharge - Sign-Out/Discharge Documenting (check all that apply): Patient Departure All imaging exams completed and their final reports reviewed: No - Discharge Plan Condition: Stable Disposition: ADMITTED TO [facility] - Billing Disposition and Condition Condition: STABLE Disposition: Admitted to [facility] - Attestation Statements Document Initiated by Shawnibe: Yes Documenting Scribe: Abdoul Rocha Provider For Whom Scribe is Documenting (Include Credential): LUC Jo Scribe Attestation: Abdoul Walton, shawnibed for LUC Jo on 11/07/18 at 2050. Scribe Documentation Reviewed: Yes Provider Attestation: The documentation as recorded by the Abdoul jauregui accurately reflects the service I personally performed and the decisions made by Tuan goldstein PA Status of Scribe Document: Viewed
[2018-11-06 17:26] LABS: ABS Eosinophils 0.1 10^3/ul (0-0.6); ABS Lymphocytes 1.6 10^3/ul (1.0-4.8); ABS Monocytes 1.5 10^3/ul (0-0.8); Eosinophil % 0.5 %; Hematocrit 45 % (35-47); Lymphocyte % 8.2 %; Mean Corpuscular HGB Conc 34 g/dL (31-36); Mean Corpuscular Hemoglobin 29 pg (27-31); Mean Corpuscular Volume 85 fL (80-97); Mean Platelet Volume 8.1 fL (7.4-10.4); Nucleated Red Blood Cells % 0.1; Platelet Count 525 10^3/uL (150-450); Red Blood Count 5.23 10^6 /uL (3.70-4.87); Red Cell Distribution Width 16 % (10-15); White Blood Count 19.3 10^3/uL (3.5-10.8)
[2018-11-06 17:43] LABS: C Reactive Protein 5.86 mg/L (<8.01)
[2018-11-06 19:55] LABS: Urine Appearance Cloudy; Urine Bacteria 1+ (Absent); Urine Bilirubin Negative (Negative); Urine Blood 1+ (Negative); Urine Color Amber; Urine Glucose Negative (Negative); Urine Ketones Trace (Negative); Urine Nitrite Negative (Negative); Urine Protein 1+(30 mg/dL) (Negative); Urine Red Blood Cell 3+(>10/hpf) (Absent); Urine Squamous Epithelial Cell Present (Absent); Urine Urobilinogen Negative (Negative); Urine White Blood Cell 1+(6-10/hpf) (Absent)
[2018-11-06 20:37] LABS: ALT 24 U/L (7-52); AST 21 U/L (13-39); Albumin 4.1 g/dL (3.2-5.2); Albumin/Globulin Ratio 1.4 (1-3); Alkaline Phosphatase 63 U/L (34-104); Anion Gap 13 mmol/L (2-11); BUN/Creatinine Ratio 11.7 (8-20); Blood Urea Nitrogen 14 mg/dL (6-24); CO2 Carbon Dioxide 26 mmol/L (22-32); Calcium 9.9 mg/dL (8.6-10.3); Chloride 101 mmol/L (101-111); Globulin 2.9 g/dL (2-4); Glucose 147 mg/dL (70-100); Potassium 3.5 mmol/L (3.5-5.0); Sodium 140 mmol/L (135-145)
[2018-11-06] MEDS ORDERED: cefTRIAXone(*) 1 GM in NS 0.9% 50 ML* 50 ML IVPB ONE (21:35)
[2018-11-07] MEDS ORDERED: Morphine INJ* 2 MG/ML 1 ML SYRINGE (TWO MG - NEW SYRINGE VERSION) IV PRN (01:05)
[2018-11-07] MEDS ORDERED: Ondansetron TAB* 4 MG PO PRN (01:07)
[2018-11-07] MEDS ORDERED: Albuterol HFA INHALER* 8 gm MDI INH PRN (01:07)
[2018-11-07 01:32] LABS: Alcohol < 10 mg/dL (<10)
[2018-11-07] MEDS: NS 0.9% 1000 ML** 1,000 ML IV SCH ×3 (02:25→22:32)
--- NOTE | 2018-11-07 03:10 | HP ---
CC: Dr. Warren * HISTORY AND PHYSICAL: DATE OF ADMISSION: 11/07/18 PRIMARY CARE PROVIDER: Dr. Warren. CHIEF COMPLAINT: Abdominal pain, nausea, vomiting, and diarrhea. HISTORY OF PRESENT ILLNESS: Ms. Arambula is an 83-year-old female who was approximately 7 weeks ago and over the last 1 month has had intermittent abdominal discomfort. She states that it comes and goes. Initially, she states it is not in a consistent location, but then she states that it is a blanket over her abdomen. She states if she eats, the pain will become more localized to certain areas of the abdomen; however, she has not been eating much. Over the last 1 month, she is down approximately 20 pounds. She states that over the last 10 days she has felt nauseous and she has been vomiting intermittently. She states most of the time, however, there are dry heaves as there is nothing in her stomach. On 11/06/18, the day of presentation to the emergency room, she noted that she had diarrhea. This is new as of that day. She states her stool has either been liquid or mushy. The last episode had mucus in it. She does state that there is some pink discoloration of the mucus. She denies any fevers or chills. She denies any unusual foods. She has been seen by Dr. Harkins from GI and underwent EGD on 09/30/18. At that time, there was concern for nathan esophagitis and she was treated with fluconazole. Additionally, it was recommended that she increase her Protonix to 40 mg twice daily. Despite this, she has continued to have pain. PAST MEDICAL HISTORY: 1. Asthma. 2. Hypertension. 3. Chronic abdominal pain and weight loss over the last 1 month. 4. Obstructive sleep apnea. 5. Depression. PAST SURGICAL HISTORY: 1. Breast reduction. 2. Tonsillectomy/adenoidectomy. 3. Umbilical hernia repair. 4. D and C. 5. Hysterectomy with 1 ovary being removed. MEDICATIONS: 1. Aspirin 81 mg p.o. daily. 2. Adderall XR 30 mg p.o. daily. 3. Amlodipine 10 mg p.o. daily. 4. Albuterol 1 puff inhaled daily. 5. Tylenol Extra Strength 500 mg p.o. daily p.r.n. 6. Abilify 2 mg p.o. daily. 7. Meclizine 25 mg p.o. t.i.d. p.r.n. dizziness. 8. Candesartan 16 mg p.o. daily. 9. Symbicort 160/4.5 two puffs inhaled b.i.d. 10. Protonix 40 mg p.o. daily. 11. Zofran 4 mg p.o. q.6 hours p.r.n., nausea. 12. Singulair 10 mg p.o. daily. 13. Venlafaxine XR 150 mg p.o. daily. 14. CoQ10 30 mg p.o. daily. 15. Spiriva 1 puff inhaled daily. ALLERGIES: IODINE. FAMILY HISTORY: Mom at the age of 85, she had diabetes. Dad at the age of 88, he had CHF. SOCIAL HISTORY: The patient is a former smoker. She smoked up until the age of 41. She drinks 2 alcoholic beverages daily. She was a [id number] mom. She is again recently . She has 2 children. She indicates that her son- in-law, Abdoul Whitfield, would be her healthcare proxy. REVIEW OF SYSTEMS: A complete 11-system review of systems was obtained. Pertinent positives and negatives are as per HPI. In addition, the patient does state that she has significant anxiety and depression. PHYSICAL EXAMINATION GENERAL: The patient is a well-developed elderly female seen lying in the bed in no acute distress. VITAL SIGNS: Blood pressure 145/73, pulse 63, respirations 18, temp 97.4, and O2 sat 95% on room air. HEENT: Pupils are equal and round. Extraocular muscles are intact. Oropharynx is clear. Oral mucosa is moist. There is no submandibular, cervical , or supraclavicular adenopathy. Thyroid is nonenlarged. No thyroid nodule noted. PULMONARY: Lungs are clear to auscultation bilaterally. CARDIAC: Normal S1 and S2. Regular rate and rhythm. I do not appreciate any murmurs. ABDOMEN: Bowel sounds are present. Abdomen is soft, nontender, nondistended. MUSCULOSKELETAL: There is no cyanosis or clubbing at the digits. There is full active range of motion all 4 extremities. SKIN: Warm and dry. There are no rashes. NEUROLOGIC: Cranial nerves II through XII are grossly intact. Sensation is intact to light touch throughout. Strength is 5/5 and symmetric to both upper and lower extremities bilaterally. PSYCH: The patient is alert. She is oriented x3. Affect appears appropriate. DIAGNOSTIC STUDIES/LAB DATA: WBC 19.3, hemoglobin 15.0, hematocrit 45, platelets 525. Sodium 140, potassium 3.5, chloride 101, CO2 26, BUN 14, creatinine 1.2. Glucose 147, lactic acid 1.2, calcium 9.9. Bilirubin 0.4, AST 21, ALT 24, alk phos 63, CRP 5.86, albumin 4.1, lipase 20. Chest x-ray to my interpretation appears clear. CT abdomen and pelvis pending. ASSESSMENT AND PLAN: Ms. Arambula is an 83-year-old female with a history of asthma, hypertension, obstructive sleep apnea and depression, who presents to the emergency room with complaints of nausea, vomiting, and diarrhea in the setting of at least 1 month of intermittent abdominal pain and vomiting. 1. Nausea, vomiting, diarrhea and abdominal pain. My suspicion is that we are not going to find any answer to the patient's symptoms at this time. She had 2 loose bowel movements here in the emergency room and a couple at home prior to coming in and that is it. CT abdomen and pelvis was done to rule out diverticulitis and the results of this are pending at this time. The patient does have known diverticulosis of the sigmoid colon based on prior CAT scan. We will treat the patient symptomatically with fluids and antiemetics. Stool culture has been sent and is pending. C. diff is negative. The patient should follow back up with Gastroenterology for further evaluation of this. 2. Leukocytosis. The main reason to admit the patient at this time is due to the patient's leukocytosis and to await the report of the CT scan. For now, if there is no clear focal infection, I am not going to start antibiotic therapy. The patient's urinalysis is abnormal, however, not completely indicative of urinary tract infection. She did receive a dose of ceftriaxone in the emergency room at about 10 p.m. on 11/06/18. If the culture comes up positive, antibiotics can be continued at that time. 3. Depression/anxiety. I suspect this is the big component of the patient's symptoms. Her primary care provider asked her to contact her therapist, which she did just the other day and she has not heard back for an appointment yet. For now, we will continue her venlafaxine XR and Abilify. She is on Adderall XR , but she does not give me a history of diagnosis to go with this. This can cause decreased appetite, abdominal pain, nausea, and diarrhea, perhaps should be considered to taper off or stop this medication. 4. Asthma. We will continue p.r.n. albuterol. 5. Hypertension. I am going to continue the patient on her usual antihypertensive medications. 6. DVT prophylaxis: According to the adult thrombosis prophylaxis risk factor assessment guide, the patient has a total risk factor score of 4 making her high risk. Lovenox 40 mg subcutaneous daily will be utilized as DVT prophylaxis. 7. Code status is full. TIME SPENT: Sixty-five minutes was spent admitting this patient. [id number] #: [id number] ERIKA
[2018-11-07] MEDS: Tiotropium CAP.INH* CAP.INH/18 MCG (USE ORDER SET !) INH SCH (07:11)
[2018-11-07] MEDS: Mometasone/Formoter 200/5 MDI INH SCH ×2 (07:12→19:28)
[2018-11-07] MEDS: Pantoprazole TAB * 40 MG TAB PO SCH (08:50)
[2018-11-07] MEDS: Montelukast Sodium TAB* 10 MG PO SCH (08:50)
[2018-11-07] MEDS: Amphetamine/Dextroamph ER(NF) 10 MG CAP.ER PO SCH ×2 (08:50→08:53)
[2018-11-07] MEDS: Aspirin EC TAB* 81 MG TAB.EC PO SCH (08:50)
[2018-11-07] MEDS: Valsartan TAB* 80 MG PO SCH (08:52)
[2018-11-07] MEDS: Venlafaxine EXT RELEASE CAP* 75 MG PO SCH (08:52)
[2018-11-07] MEDS: ARIPiprazole TAB* 2 MG PO SCH (08:52)
[2018-11-07] MEDS: amLODIPine TAB* 5 MG PO SCH (08:53)
[2018-11-07] MEDS ORDERED: Spiriva Inhaler DEVICE* 1 EACH DEVICE INH ONE (09:00)
[2018-11-07 09:06] LABS: ABS Basophils 0.1 10^3/ul (0-0.2); ABS Eosinophils 0.1 10^3/ul (0-0.6); ABS Lymphocytes 2.2 10^3/ul (1.0-4.8); ABS Monocytes 1.1 10^3/ul (0-0.8); ABS Neutrophils 15.1 10^3/ul (1.5-7.7); Eosinophil % 0.6 %; Hematocrit 42 % (35-47); Hemoglobin 13.5 g/dL (12.0-16.0); Lymphocyte % 11.7 %; Mean Corpuscular HGB Conc 32 g/dL (31-36); Mean Corpuscular Hemoglobin 28 pg (27-31); Mean Corpuscular Volume 86 fL (80-97); Mean Platelet Volume 7.9 fL (7.4-10.4); Platelet Count 503 10^3/uL (150-450); Red Blood Count 4.86 10^6 /uL (3.70-4.87); Red Cell Distribution Width 16 % (10-15); White Blood Count 18.5 10^3/uL (3.5-10.8)
[2018-11-07 09:18] LABS: BUN/Creatinine Ratio 10.4 (8-20); Calcium 9.3 mg/dL (8.6-10.3); EGFR African American 67.3 (>60); EGFR Non-African American 55.6 (>60); Potassium 3.3 mmol/L (3.5-5.0)
[2018-11-07] MEDS ORDERED: Potassium Chlor TAB* 20 MEQ TAB.ER PO ONE (10:01)
[2018-11-07] MEDS: Acetaminophen TAB* 325 MG PO PRN (10:15)
--- NOTE | 2018-11-07 14:52 | PN ---
Subjective Date of Service: 11/07/18 Interval History: Patient seen and examined. Complains of diarrhea immediately after ingesting clears. States her abdomen is uncomfortable, but not painful, localized more to the umbilicus and LLQ. Denies n/v. Denies fevers or chills. Daughter at bedside. Objective Active Medications: Acetaminophen (Tylenol Tab*) 650 mg PO Q4H PRN PRN Reason: mild pain Last Admin: 11/07/18 10:15 Dose: 650 mg Albuterol (Ventolin Hfa Inhaler*) 2 puff INH Q4H PRN PRN Reason: SOB/WHEEZING Amlodipine Besylate (Norvasc Tab*) 10 mg PO DAILY [facility] Last Admin: 11/07/18 08:53 Dose: 10 mg Amphetamine/Dextroamphetamine (Adderal Xr (Nf)) 30 mg PO DAILY [facility] Last Admin: 11/07/18 08:53 Dose: Not Given Aripiprazole (Abilify Tab*) 2 mg PO DAILY [facility] Last Admin: 11/07/18 08:52 Dose: 2 mg Aspirin (Aspirin Ec Tab*) 81 mg PO DAILY [facility] Last Admin: 11/07/18 08:50 Dose: 81 mg Enoxaparin Sodium (Lovenox(*)) 40 mg SUBCUT Q24H [facility] Sodium Chloride (Ns 0.9% 1000 Ml) 1,000 mls @ 100 mls/hr IV PER RATE [facility] Last Admin: 11/07/18 12:50 Dose: 100 mls/hr Mometasone Furoate/Formoterol Fumar (Dulera 200/5 Mdi*) 2 puff INH BID [facility]; Protocol Last Admin: 11/07/18 07:12 Dose: 2 puff Montelukast Sodium (Singulair Tab*) 10 mg PO DAILY [facility] Last Admin: 11/07/18 08:50 Dose: 10 mg Morphine Sulfate (Morphine Inj (Syringe))*) 2 mg IV Q4H PRN PRN Reason: moderate/severe pain Ondansetron HCl (Zofran Tab*) 4 mg PO Q6H PRN PRN Reason: NAUSEA Pantoprazole Sodium (Protonix Tab*) 40 mg PO DAILY [facility] Last Admin: 11/07/18 08:50 Dose: 40 mg Polyethylene Glycol/Electrolytes (Golytely*) 2,000 ml PO ONCE ONE Stop: 11/07/18 16:01 Polyethylene Glycol/Electrolytes (Golytely*) 2,000 ml PO ONCE ONE Stop: 11/08/18 07:01 Tiotropium [place] (Spiriva Cap.Inh*) 1 cap INH DAILY [facility] Last Admin: 11/07/18 07:11 Dose: 1 cap Valsartan (Diovan Tab*) 160 mg PO DAILY [facility]; Protocol Last Admin: 11/07/18 08:52 Dose: 160 mg Venlafaxine HCl (Effexor Xr Cap*) 150 mg PO DAILY [facility] Last Admin: 11/07/18 08:52 Dose: 150 mg Vital Signs - 8 hr 11/07/18 11/07/18 07:53 08:00 Temperature 97.6 F Pulse Rate 76 Respiratory 16 16 Rate Blood Pressure 118/38 (mmHg) O2 Sat by Pulse 93 Oximetry Oxygen Devices in Use Now: None Appearance: alert, NAD Eyes: No Scleral Icterus, PERRLA Ears/Nose/Mouth/Throat: NL Teeth, Lips, Gums, Mucous Membranes Moist Neck: NL Appearance and Movements; NL JVP, Trachea Midline Respiratory: Symmetrical Chest Expansion and Respiratory Effort, Clear to Auscultation Cardiovascular: NL Sounds; No Murmurs; No JVD, RRR, No Edema Abdominal: - - tender to palpation LLQ and left of umbilicus Extremities: No Edema, No Clubbing, Cyanosis Skin: No Rash or Ulcers Neurological: Alert and Oriented x 3, NL Sensation, NL Muscle Strength and Tone Nutrition: Taking PO's, - - CLD Result Diagrams: 11/07/18 08:54 11/07/18 08:54 Microbiology and Other Data: Microbiology 11/06/18 18:30 Stool Gross Appearance - Final Stool Shiga Toxin I & II - Final 11/06/18 18:30 Stool Gross Appearance - Final Stool C. difficile DNA Amplification - Final 027 Presumptive NEGATIVE Toxigenic C.diff NEGATIVE Diagnostic Imaging: Patient Name: MALINA ROBERTS Medical Record#: [id number] Ordering Physician: Tuan CALLE Acct.#: [id number] : 1935 Age: 83 Sex: F Location: [address] [place] [address] - MEDICAL Exam Date: 11/06/182147 ADM Status: ADM Sherry Order Information: CT ABD/PEL W/O Accession Number: [id number] CPT: 13683 EXAM: CT Abdomen and Pelvis Without Contrast EXAM DATE/TIME: 11/07/2018 12:09 AM CLINICAL HISTORY: 83 years old, female; Abdominal pain; Additional info: Abdominal pain, v/d, TECHNIQUE: Imaging protocol: Axial computed tomography images of the abdomen and pelvis without contrast. Coronal and sagittal reformatted images were created and reviewed. Radiation optimization: All CT scans at this facility use at least one of these dose optimization techniques: automated exposure control; mA and/or kV adjustment per patient size (includes targeted exams where dose is matched to clinical indication); or iterative reconstruction. COMPARISON: A/P W CT ABD/PEL W 10/28/2018 1:42 PM FINDINGS: Lung bases: Stable 4 mm pulmonary nodule in right lower lobe, image 1 series 2. Bilateral dependent atelectasis. Liver: Normal. No mass. Gallbladder and bile ducts: Normal. No calcified stones. No ductal dilation. Pancreas: Normal. No ductal dilation. Spleen: Previously seen subcentimeter hypodense lesion is not well-visualized on current noncontrast study. No splenomegaly. Adrenals: Normal. No mass. Kidneys and ureters: Normal. No hydronephrosis. Stomach and bowel: Mild mucosal thickening of the distal stomach and proximal small bowel which is nonspecific however may be seen in gastroenteritis. No bowel obstruction. Colonic diverticulosis with no evidence of acute diverticulitis. Unchanged focal mural thickening of the sigmoid colon, best seen on axial image 64 series 2. Appendix: No evidence of appendicitis. Intraperitoneal space: Normal. No free air. No significant fluid collection. Vasculature: Atherosclerosis. No abdominal aortic aneurysm. Lymph nodes: Normal. No enlarged lymph nodes. Bladder: Unremarkable as visualized. Reproductive: Prior hysterectomy. Bones/joints: No acute fracture. Degenerative changes in the spine. Soft tissues: Unremarkable. IMPRESSION: 1. Mild mucosal thickening of the distal stomach and proximal small bowel which is nonspecific however may be seen in gastroenteritis. 2. Colonic diverticulosis with no evidence of acute diverticulitis. 3. Unchanged focal mural thickening of the sigmoid colon, best seen on axial image 64 series 2. If clinically warranted, further evaluation with sigmoidoscopy may be considered to rule out underlying mass. Assess/Plan/Problems-Billing Assessment: This is an 83 year old female with history of htn, depression and IBS that presented to the ED with her family with complaints of n/v/d for the last 24 hours, but also complaints of recent depression ( of spouse), anorexia and 20lb weight loss since July. - Patient Problems (1) Vomiting and diarrhea Code(s): R11.10 - VOMITING, UNSPECIFIED; R19.7 - DIARRHEA, UNSPECIFIED SNOMED Code(s): 275134713 Comment: - Reported hx of IBS, no fever, no sick contacts - CT as above, no diverticulitis, however, there is mural thickening in the colon - Consult with Dr. Rabago appreciated, plan for colonscopy tomorrow - Continue CLD with bowel prep (2) Leukocytosis Code(s): D72.829 - ELEVATED WHITE BLOOD CELL COUNT, UNSPECIFIED SNOMED Code(s) : 113616505 Comment: - Unclear etiology - May be viral gastroenteritis - Stool studies pending - No fever, no abscess on CT - Urinalysis does not appear to be infected, follow cultures, one dose cftxn given in ER - Possibility that abrupt discontinuation of psych meds caused some reative leukocytosis but should not have caused level to be this high - Follow AM labs (3) Mood disorder Code(s): F39 - UNSPECIFIED MOOD [AFFECTIVE] DISORDER SNOMED Code(s): 81898936 Comment: - Unclear why patient is on adderall and abilify with effexor and patient cannot articulate why she is on these medications; she does state that she call her psychiatrist to notify him that she was not feeling "well" when her was sick and when he but she did not get an appointment to see him - Patient also reports she went off meds for several days prior to coming to the ER - Requested psychiatry consult to eval patient given recent loss of and to clarify meds Status and Disposition: Observation, pending colonoscopy in AM.
--- NOTE | 2018-11-07 15:32 | CONS ---
CONSULTATION REPORT: DATE OF CONSULT: 11/07/18 REQUESTING PROVIDER: Stella Romo. REASON FOR CONSULT: Nausea, vomiting, diarrhea, weight loss. HISTORY OF PRESENT ILLNESS: This is an 83-year-old female who presented to the emergency room with nausea, vomiting and diarrhea, worsening on 11/06/18. She has been seen by our office by Dr. Harkins and our PA Delaney Silva for ongoing nausea and vomiting with occasionally loose stool. She states that starting Thursday, she noticed an increase in her nausea and emesis. It is normally postprandial in nature. Symptoms do not occur in the evening and shortly thereafter noticed diarrhea, which she describes as completely liquid that began on Thursday. No black or blood in the stool. No recent unusual or undercooked food . No new medications were added; however, she states that she has been out of few medications and has been holding her Adderall and Abilify for few days and taking them in a little bit more of a haphazard nature. She states that over the last 2 to 3 months, she is down over 20 pounds. She states she just does not feel like eating, it is not that she feels full early. She describes her emesis as postprandial. No hematemesis. No bilious emesis. She had recent EGD by my partner, Dr. Harkins on 09/30/18. 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 Her last colonoscopy was over 10 years ago per patient. She denies any fevers, chills, or rigors. She has had significant losses in her life including being about 7 weeks ago. She does admit to well water at home, it is not chlorinated , it is only softened. She has a dog that does go outside. No other pets or animals. She denies any use of artificial sweeteners or carbonated beverages. The remainder of the 14-point review of systems are grossly negative. PAST MEDICAL HISTORY: Asthma, hypertension, COPD, obstructive sleep apnea, depression. PAST SURGICAL HISTORY: Breast reduction, tonsillectomy, adenoidectomy, umbilical hernia repair, D and C, hysterectomy, EGD on 09/30/18 and colonoscopy in 2003 with mild sigmoid diverticulosis. MEDICATIONS: Home medications include: 1. Aspirin. 2. Adderall. 3. Amlodipine. 4. Albuterol. 5. Tylenol. 6. Abilify. 7. Meclizine. 8. Candesartan. 9. Symbicort. 10. Protonix. 11. Zofran. 12. Singulair. 13. Venlafaxine. 14. Coenzyme Q. 15. Spiriva. ALLERGIES: Include IODINE. FAMILY HISTORY: Maternal diabetes. SOCIAL HISTORY: Recently , former smoker, drinks 2 alcoholic beverages a day usually vodka. REVIEW OF SYSTEMS: Remainder of the 14-point review of systems is grossly negative except for as described in the HPI. PHYSICAL EXAM: Vital Signs: Blood pressure is 118/38, pulse is 76, respiratory rate is 16, temperature is 97.6, she is 93% on room air. In general , alert and oriented x3 in no acute distress. HEENT: Atraumatic, normocephalic. Pupils equal, round, reactive to light. Extraocular movements are intact. Conjunctivae are pink. No palpable adenopathy in the anterior and posterior cervical chain is appreciated. Cardiac: Regular rate and rhythm. S1 , S2. Pulmonary: Clear to auscultation bilaterally. Abdomen: Soft, nontender , and nondistended. Bowel sounds positive. No guarding or rebound. No palpable hepatosplenomegaly. Musculoskeletal: Moves all extremities. Skin: No appreciable rashes or erythema or ecchymosis. Psych: Appropriate affect. DIAGNOSTIC STUDIES/LAB DATA: Hemoglobin 15; WBC count initially 19.3, now 18.5 ; platelet count 525, now 503. Potassium 3.3, creatinine 0.96, glucose 130. Serum alcohol less than 10. She had a CT of the abdomen and pelvis done on 11/06/18, which revealed mild mucosal thickening of the distal stomach and proximal small bowel, colonic diverticulosis and unchanged focal mural thickening of the sigmoid colon. ASSESSMENT AND PLAN: This is an 83-year-old female with recent of a partner, presenting with nausea, vomiting, diarrhea, and weight loss. 1. Nausea and vomiting. The patient had a recent upper endoscopy without any clear etiology. There is thickening on the CAT scan that was not appreciated on the upper endoscopy. She was found to have macarena esophagitis and treated appropriately. Despite symptomatic control, the nausea and vomiting is persisted and along with the poor appetite. She had a CT that does show a normal pancreas; however, there is also thickening within the sigmoid colon. I suspect that some of this nausea and vomiting may be due to her medications along with the recent stressors in her life including potential bereavement. Unclear as to why the patient is on Adderall at age 83. I would recommend thorough investigation for polypharmacy and trimming of the medication list, as these may significantly augment some of her complaints. 2. Abnormal CAT scan. She has a CT that does show persistent thickening within the sigmoid colon. Her last colonoscopy was in 2003 given her ongoing complaints of diarrhea. I would recommend obtaining full stool studies, the C. diff has already been appropriately obtained and negative. Given her well water at home, we will check for giardia and cryptosporidium. We will also plan on colonoscopy to evaluate for microscopic colitis and also to evaluate this abnormality within the sigmoid colon. I discussed the risks, benefits, and alternatives to the procedure and the patient would like to proceed. We will plan on colonoscopy on 11/08/18. 3. Diarrhea, unclear etiology. We will check stool studies as above. Again, I recommend potentially trimming the medication list if possible. This may be functional in nature unless the above workup is negative. 4. Persistent leukocytosis, unclear etiology, nothing to suggest origin within the GI tract at this point given imaging. However, I would definitely obtain remainder of the stool studies to rule out infectious etiology; however, at this point it appears unlikely. [id number]/[facility] #: [id number] MTDD
[2018-11-07] MEDS ORDERED: PEG 3000 GI LAVAGE* 1 GALLON PO ONE (16:00)
[2018-11-07] MEDS: Enoxaparin(*) 40 MG/0.4 ML SYR SUBCUT SCH (22:29)
[2018-11-08 06:54] LABS: ABS Basophils 0.1 10^3/ul (0-0.2); ABS Eosinophils 0.2 10^3/ul (0-0.6); ABS Lymphocytes 1.9 10^3/ul (1.0-4.8); ABS Monocytes 0.8 10^3/ul (0-0.8); ABS Neutrophils 6.6 10^3/ul (1.5-7.7); Eosinophil % 2.2 %; Hematocrit 35 % (35-47); Hemoglobin 11.7 g/dL (12.0-16.0); Lymphocyte % 19.5 %; Mean Corpuscular HGB Conc 33 g/dL (31-36); Mean Corpuscular Hemoglobin 29 pg (27-31); Mean Corpuscular Volume 87 fL (80-97); Mean Platelet Volume 8.3 fL (7.4-10.4); Platelet Count 359 10^3/uL (150-450); Red Blood Count 4.05 10^6 /uL (3.70-4.87); Red Cell Distribution Width 16 % (10-15); White Blood Count 9.6 10^3/uL (3.5-10.8)
[2018-11-08] MEDS ORDERED: PEG 3000 GI LAVAGE* 1 GALLON PO ONE (07:00)
[2018-11-08] MEDS: Mometasone/Formoter 200/5 MDI INH SCH ×2 (07:16→19:45)
[2018-11-08] MEDS: Tiotropium CAP.INH* CAP.INH/18 MCG (USE ORDER SET !) INH SCH (07:16)
[2018-11-08] MEDS: Acetaminophen TAB* 325 MG PO PRN (08:07)
[2018-11-08] MEDS: Valsartan TAB* 80 MG PO SCH (08:30)
[2018-11-08] MEDS: amLODIPine TAB* 5 MG PO SCH (08:30)
[2018-11-08] MEDS: Pantoprazole TAB * 40 MG TAB PO SCH (08:30)
[2018-11-08] MEDS: Montelukast Sodium TAB* 10 MG PO SCH (08:30)
[2018-11-08] MEDS: Amphetamine/Dextroamph ER(NF) 10 MG CAP.ER PO SCH (08:31)
[2018-11-08] MEDS: Venlafaxine EXT RELEASE CAP* 75 MG PO SCH (08:31)
[2018-11-08] MEDS: Aspirin EC TAB* 81 MG TAB.EC PO SCH (08:31)
[2018-11-08] MEDS: ARIPiprazole TAB* 2 MG PO SCH (08:45)
[2018-11-08] MEDS: NS 0.9% 1000 ML** 1,000 ML IV SCH ×2 (08:46→22:08)
[2018-11-08] MEDS ORDERED: fentaNYL* 50 MCG/ML 2 ML VIAL (100 MCG VIAL) ONE (10:43)
[2018-11-08] MEDS ORDERED: Midazolam* 1 MG/ML 10 ML VIAL (10 MG) ONE (10:44)
--- NOTE | 2018-11-08 15:32 | PRO ---
CC: Dr. Warren DATE OF PROCEDURE: 11/08/2018. PROCEDURE PERFORMED: Incomplete colonoscopy. INDICATION: Diarrhea. According to the patient, it has resolved. REFERRING PHYSICIAN: Dr. Warren. MEDICATIONS GIVEN: 50 mcg IV Fentanyl and 4 mg IV Versed. PROCEDURE: After the colonoscopy procedure, including the risks, benefits and alternatives, not limi atilio to perforation, surgery and/or were explained to the patient, written consent was then obta ined. IV medication was given and a rectal exam was performed. It was unremarkable. An Olympus ped iatric colonoscope was then inserted into the patient's rectum and advanced to approximately the mid sigmoid colon. The patient has extremely extensive diverticulosis. She did have a colonoscopy 15 ye ars ago at which time the general office associate mentioned that her diverticulosis was terrible and it wa s an extremely difficult and challenging colonoscopy. The colon feels very fixed within the cavity. It does not move at all with the scope. Given the fact the indication for this procedure was diarrh ea and the patient states that her diarrhea has resolved and it only lasted 24 hours and I was not se eing any abnormalities other than the diverticulosis and her age, I decided to terminate the procedur e at that point. I did take a few biopsies for microscopic colitis. She again has severe diverticul osis. There was a polyp in the rectum removed with jumbo biopsy forces. The scope was then withdraw n from the patient. She tolerated the procedure well and was returned to her hospital room in stable condition. IMPRESSION: 1. Incomplete colonoscopy to the sigmoid colon with biopsy polypectomy and biopsies. 2. Rectal polyp, status post biopsy polypectomy. 3. Biopsies for microscopic colitis. 4. The patient only had 24 hours of diarrhea. She tells me it is resolved at this point. She does continue to have nausea and anorexia. She is seeing Dr. Melvin Kevin for this and she can continue t o follow-up with her regarding work-up for those symptoms. [id number]/[facility] #: [id number]
--- NOTE | 2018-11-08 18:39 | PN ---
Hospitalist Progress Note Date of Service: 11/08/18 Patient was planned for discharge, however I was called to the bedside because patient got out of bed and complained of dizziness and felt like she was going to fall over. She did not fall, she was assisted back to the bed. Daughter is concerned that she is not safe to go home. Will keep patient tonight and consider PT eval in AM if she is not able to ambulate. Meclizine ordered PRN, patient has hx of vertigo in the past. IVF continued.
[2018-11-08] MEDS ORDERED: Meclizine TAB* 12.5 MG PO PRN (18:45)
--- NOTE | 2018-11-08 19:00 | CONS ---
CONSULTATION REPORT: DATE OF CONSULT: 11/08/18 ATTENDING PHYSICIAN: Stella Romo NP CONSULTING PHYSICIAN: Dr. Igor Perla. REASON FOR CONSULT: Depression. SUBJECTIVE HISTORY: The patient is an 83-year-old recently white female with a history of chronic alcoholism, who is admitted to the hospitalist service for workup of abdominal pain, nausea, vomiting and diarrhea, who endorsed depressive illness to the primary team. There are questions as to whether her depression is contributing to her medical presentation. My understanding is that the patient has lost 20 pounds in the last month and has multiple recent psychosocial stressors. When I meet with the patient, she is accompanied by her adopted daughter, whose name is April, who resides in [place], [place]. The patient's account is that an extremely close friend of hers in February 2018 and the patient had been grieving that loss. Her got sick over the spring of this year and in late August 2018. Subsequently, her mood started getting worse and she started feeling more alone. She does endorse several neurovegetative symptoms including some difficulty sleeping, anhedonia, guilt for not being more present for her , some energy and concentration loss as well as significant lack of appetite. She steadfastly denies any suicidal thoughts or behaviors. Interestingly, her abdominal pain issues started approximately 1 month prior to her 's passing and it is not certain what the connection is between these two issues. She is currently pending medical workup for her weight loss. I understand that another question psychiatrically is that she has been on amphetamines as prescribed by outpatient psychiatrist, Dr. Richard Wong. I did leave a message with Dr. Wong's voice mail, but as yet have not heard back from him. PAST PSYCHIATRIC HISTORY: The patient states that she saw a female psychiatrist here in [place], whose name she cannot remember, who prescribed antidepressants that clinician stopped seeing Mrs. Arambula 15 years ago because the patient was abusing alcohol. She was then referred to Dr. Wong by her outpatient therapist, whose name is Manuel whose office is on [facility] in [place]. She has never been psychiatrically hospitalized. She denies any history of abuse, neglect, or trauma. She denies history of traumatic brain injury and she denies history of violence or homicidality. She has been treated with venlafaxine for several decades and Dr. Wong added aripiprazole and Adderall XR as adjunctive agent. SUBSTANCE ABUSE HISTORY: The patient is a chronic alcoholic. She went to rehab once in [place] in 2003. She had one DWI as recently as 4 years ago when she was 79 years old. Currently, she is not abusing alcohol, stating that she has lost the taste for this along with food. She denies abuse of tobacco or illicit drugs. PAST MEDICAL HISTORY: Significant for asthma, hypertension, chronic abdominal pain, obstructive sleep apnea, diverticulosis, breast reduction, tonsillectomy, umbilical hernia repair, D and C hysterectomy with one ovary being removed. MEDICATIONS: Include: 1. Aspirin. 2. Adderall XR. 3. Amlodipine. 4. Albuterol. 5. Tylenol. 6. Abilify. 7. Meclizine. 8. Candesartan. 9. Symbicort. 10. Protonix. 11. Zofran. 12. Singulair. 13. Venlafaxine. 14. Spiriva. ALLERGIES: She is allergic to IODINE. FAMILY HISTORY: Negative for mental illnesses. SOCIAL HISTORY: The patient was born an only child to her parents who resided in [place], [place]. She got an undergraduate degree at [employer] and then did a year of graduate school at [employer] to obtain a teaching certificate. 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 Her and her have 2 children who are both adopted. The patient was raised Spiritism, but is no longer practicing this rajendra. She is currently single, having been recently . My understanding is that she was not extremely close with her who was a retired party plan sales director at [employer]. They had stopped living together approximately 8 years ago. She does have a legal history of a DWI in 2014. MENTAL STATUS EXAMINATION: The patient is an aging white female who is lying up in bed attached to an IV, wearing patient gown. She is calm, cooperative, expressive with an excellent vocabulary. Mood appears to be euthymic with full affect. Thought process is linear, goal directed. Thought content is significant for some somatic complaints. She is denying suicidal or homicidal ideations. She denies auditory or visual hallucinations. Insight and judgment are fair given her willingness to follow up with outpatient treatment. Cognitively, she is awake and alert with what would appear to be a high average intellect by virtue of her vocabulary. 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 [place] II: Deferred. IMPRESSION: The patient is an 83-year-old recently white female with several medical problems as well as chronic alcoholism and depression, who arrives at the hospital with abdominal complaints and comorbid appetite disturbance and a recent weight loss of 20 pounds unintentionally. She does meet criteria for depression, although this is somewhat complicated by her situation of bereavement. I am recommending discontinuation of psychostimulant therapy as I see no indication for this. I think her antidepressant and adjunctive Abilify doses are therapeutic. What I am recommending is that she followup with her outpatient therapist as well as bereavement services in the community. RECOMMENDATIONS TO PRIMARY TEAM: Psychiatry will discontinue Adderall. I am recommending that she not followup with Dr. Wong, but instead can see her primary care provider. She has a therapist, Manuel in the community for bereavement group programming. She can attending the bereavement group held by the local [facility]. The patient and her daughter expressed an understanding of these recommendations and the patient is psychiatrically cleared for discharge from the hospital. Thank you for the consultation. [id number]/[facility] #: [id number] ERIKA
[2018-11-08] MEDS: Enoxaparin(*) 40 MG/0.4 ML SYR SUBCUT SCH (20:02)
--- NOTE | 2018-11-09 00:09 | DS ---
CC: Dr. Lavonne Warren; Dr. Danielle Harkins * DISCHARGE SUMMARY: DATE OF ADMISSION: 11/07/18 DATE OF DISCHARGE: 11/08/18 PRIMARY CARE PROVIDER: Dr. Lavonne Warren. MY ATTENDING PHYSICIAN FOR TODAY: Dr. Wes Addison.* (DICTATED BY LENORE RUDD NP) CHIEF COMPLAINT: Nausea, vomiting, diarrhea, depression, and weight loss. HOSPITAL COURSE: Please refer to admitting H and P, dated 11/07/18. But in short, Ms. Hetal Arambula is an 83-year-old female patient whose family brought her into the emergency department for some weakness, nausea, vomiting, and diarrhea. Family describes that their mother has had some recent losses, their father 7 weeks ago. The mother has had some, what is likely, abnormal grieving over the past several weeks. They also describe her as having a 20-pound weight loss and poor appetite over the last 2 months. However , most acutely, over the last several days prior to her admission, she started with intractable nausea, vomiting, and diarrhea. The patient's daughter also states she had some mucus in her diarrhea. She has been following up with GI as an outpatient and did have some history of IBS and diverticulosis in the past. However, with her continued weight loss and inability to keep in any food, she was brought to the emergency department for evaluation. Also of note, she was diagnosed with esophageal nathan infection for which she was on Diflucan. However, she did not seem to feel any better after having her endoscopic procedure with Dr. Harkins earlier in the month. Again, for these reasons the patient was referred to the emergency department and admitted for observation. The patient was also found to have leukocytosis of unclear etiology when she was admitted to the emergency department. For her leukocytosis, there was some concern with the vomiting and diarrhea that potentially there was some GI abscess or diverticulitis. She had CT scanning of the abdomen and pelvis which did show diverticulosis, but that did not show any acute GI infection. However, given the patient's advanced age, symptoms, and unclear etiology of her leukocytosis, again she was admitted for observation. She was given IV fluids. She was given 1 dose of ceftriaxone. Her urinalysis was equivocal. There was some concern for perhaps urinary tract infection. She was given IV Zofran, kept on clear liquids. She was seen by Dr. Harkins's partner, Dr. James Rabago, who also evaluated the patient. Because there was some mural thickening of the colon on the CT scan we felt setting the patient up for colonoscopy with Dr. Nielson would be warranted. She underwent colonoscopy on 11/08/18. Because she also did have persistent diarrhea, the patient described having clear liquids and the liquids running right through her and she was not able to tolerate any p.o. intake. The notes from her colonoscopy states that she does have severe diverticulosis that is described as extensive in nature. However, the colonoscopy was terminated early secondary to the resolution of her diarrhea prior to the procedure. Noted extensive diverticulosis and also not on any other immediately visualized abnormalities on the initial part of her examination. Biopsies were taken and then the polyp in the rectum was also removed and the colonoscopy was then terminated. The patient recovered from her procedure very well. She was able to tolerate p.o. intake thereafter, did not describe anymore diarrhea, no more nausea and vomiting. REVIEW OF SYSTEMS: Shortly thereafter she described no nausea or vomiting, no diarrhea, no abdominal pain, no fevers or chills, no chest pain, no shortness of breath, and no further constitutional complaints. Her only issue that was of greater concern was her persistent depression. Because the patient did have this issue with her grieving, her family was concerned, because she lives by herself, that she does have some underlying depressive disorder, that perhaps she was not taking her medications correctly. She does see a psychiatrist and a therapist as an outpatient. There was also some question because the patient was prescribed Adderall, with the diarrhea and the weight loss, Adderall is an amphetamine, the patient does have obviously advanced age of [age] years old, that this may not be an appropriate medication for her. As such we consulted psychiatry, she was seen by Dr. Igor Perla who agreed that Adderall would not be an appropriate medication for her, but did agree that keeping her on Abilify and Effexor would be appropriate, but also referred her to [facility] for grieving services and stated that the patient should continue with her outpatient therapy. He does know her therapist and agreed that this is something that should continue to be pursed while she recovers from her grieving process from the loss of her . The patient was cleared by GI service today after her colonoscopy and was also cleared by Psychiatry for discharge to home. DISCHARGE DIAGNOSES: Include: 1. Vomiting and diarrhea, likely related to gastroenteritis. 2. Leukocytosis, likely secondary to above. 3. 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 4. Dehydration, likely secondary to #1. SECONDARY DIAGNOSES: 1. History of hypertension. 2. History of asthma. 3. History of obstructive sleep apnea. 4. History of irritable bowel syndrome. PHYSICAL EXAMINATION: On the day of discharge, the patient is awake and alert, in no acute distress. Vital Signs are blood pressure 117/37, respiratory rate 18, heart rate 73, O2 saturation 97% on room air, with temperature of 98.8. HEENT: The patient is atraumatic and normocephalic. PERRLA. Nonicteric sclerae. Oral mucosa is moist. Tongue is midline. Neck: Supple and nontender. No JVD noted. No carotid bruits auscultated. No thyromegaly appreciated. Cardiovascular: S1 and S2 present. Rate and rhythm are regular. Lungs are clear bilaterally to auscultation, with no wheezing, rhonchi or rales. Abdomen: Soft and nondistended. Mild tenderness to the left lower quadrant. Hyperactive bowel sounds noted. No organomegaly appreciated. : Deferred. Musculoskeletal: There is no clubbing, no cyanosis, no edema. She has steady gait. Full range of motion. Gross motor and sensation are intact. Neurologic: Grossly intact, with no focal deficits. Psychiatric: She is cooperative and appropriate. Denies any suicidal or homicidal ideations and is appropriate. DIAGNOSTIC STUDIES/LABORATORY DATA: WBC is 9.6, RBC is 4.05, hemoglobin 11.7, hematocrit 35, platelets 359. Sodium 139, potassium 3.3, chloride 104, CO2 of 25, BUN 10, creatinine 0.96, GFR 55.6, glucose 130, lactic acid 1.2. LFTs within normal range. CRP is 5.86. Urinalysis: Chary cloudy urine, 1+ protein , trace ketones, 1+ blood; negative for nitrites, bilirubin or urobilinogen; 1+ leukocyte esterase, 1+ wbc's, 3+ rbc's, 1+ bacteria. Toxicology: Serum alcohol was less than 10. Imaging: Abdomen and pelvis CT shows mild mucosal thickening of the distal stomach and proximal small bowel, which is nonspecific. Colonic diverticulosis , with no evidence of acute diverticulitis. Unchanged focal mural thickening of the sigmoid colon. If clinically warranted further evaluation with sigmoidoscopy may be considered to rule out further underlying mass. Chest x-ray shows mild obstructive lung disease and otherwise no acute pulmonary focality noted. FOLLOWUP: The patient was instructed to follow up with Dr. Warren, her primary care provider, in the next 4 to 7 days, with Dr. Danielle Harkins in 1 to 2 weeks, and was referred to [facility] for grieving, counselling, and group therapy in the next 1 to 2 weeks. She also given referral for a visiting nurse service. DISPOSITION: The patient was discharged to home in the care of her daughter in stable condition. The patient and her daughter stated their understanding of the discharge medications, followups, and referrals at discharge. TIME SPENT: Forty-five minutes on discharge planning. LENORE RUDD NP [id number]/[facility] #: [id number] ERIKA
[2018-11-09] MEDS: amLODIPine TAB* 5 MG PO SCH (08:24)
[2018-11-09] MEDS: Montelukast Sodium TAB* 10 MG PO SCH (08:25)
[2018-11-09] MEDS: Aspirin EC TAB* 81 MG TAB.EC PO SCH (08:25)
[2018-11-09] MEDS: Valsartan TAB* 80 MG PO SCH (08:25)
[2018-11-09] MEDS: Pantoprazole TAB * 40 MG TAB PO SCH (08:25)
[2018-11-09] MEDS: ARIPiprazole TAB* 2 MG PO SCH (08:25)
[2018-11-09] MEDS: Venlafaxine EXT RELEASE CAP* 75 MG PO SCH (08:25)
[2018-11-09 10:11] VITALS: BP 125/47
[2018-11-09] MEDS: Mometasone/Formoter 200/5 MDI INH SCH (10:49)
[2018-11-09] MEDS: Tiotropium CAP.INH* CAP.INH/18 MCG (USE ORDER SET !) INH SCH (10:50)
== END 2018-11-09 11:30 | disposition home or self-care (01) ==
LOC: ED 16:28 → MED 11-07 01:05
PROVIDERS: ADMIT Hospitalist; ATTEND Internal Medicine
DX: K57.90 Diverticulosis of intestine, part unspecified, without perforation or abscess without bleeding (principal); D36.9 Benign neoplasm, unspecified site; K62.1 Rectal polyp; R53.1 Weakness; R11.2 Nausea with vomiting, unspecified; F39 Unspecified mood [affective] disorder; D72.829 Elevated white blood cell count, unspecified; R19.7 Diarrhea, unspecified; F10.11 Alcohol abuse, in remission; I10 Essential (primary) hypertension; Z87.891 Personal history of nicotine dependence
CPT/HCPCS: 36415; 71046; 74176; 80048; 80053; 80320; 81003; 81015; 82103; 82656; 83605; 83630; 83690; 85025; 86140; 87045; 87046; 87077; 87086; 87328; 87329; 87493; 88305; 94640; 96365; 96372; 96375; 96376; 99156; 99157; 99284; A9270-GY; G0378; G0480; J0696; J1650; J2250; J2405; J3010

== ENCOUNTER 2018-12-29 13:43 | Emergency (ER) | payer MEDICARE, OTHER ==
[2018-12-29] MEDS ORDERED: NS 0.9% 1000 ML** 1,000 ML IV ONE (14:25)
[2018-12-29 14:28] LABS: ABS Basophils 0.1 10^3/ul (0-0.2); ABS Lymphocytes 2.1 10^3/ul (1.0-4.8); ABS Monocytes 1.2 10^3/ul (0-0.8); ABS Neutrophils 6.9 10^3/ul (1.5-7.7); Eosinophil % 0.4 %; Hematocrit 41 % (35-47); Hemoglobin 13.5 g/dL (12.0-16.0); Lymphocyte % 20.7 %; Mean Corpuscular HGB Conc 33 g/dL (31-36); Mean Corpuscular Hemoglobin 28 pg (27-31); Mean Corpuscular Volume 85 fL (80-97); Mean Platelet Volume 7.1 fL (7.4-10.4); Nucleated Red Blood Cells % 0.1; Platelet Count 693 10^3/uL (150-450); Red Blood Count 4.84 10^6 /uL (3.70-4.87); Red Cell Distribution Width 17 % (10-15); White Blood Count 10.3 10^3/uL (3.5-10.8)
--- NOTE | 2018-12-29 14:31 | ED ---
Complex/Multi-Sys Presentation - HPI Summary HPI Summary: 83 year old F presenting to [facility] accompanied by rn long term care Eliza Padilla and rn long term care nurse from [facility] complains of intermittent abdominal pain since July 2018. The patient rates the pain 0/10 currently in severity per triage note. Symptoms aggravated by nothing. Symptoms alleviated by nothing. Patient states that the abdominal pain does not wake her up at night. Patient reports diarrhea that is not mucousy or stringy, nausea, decreased appetite, recent weight loss 20 pounds in 3 weeks, dry heaving, and fatigue. Patient denies bloody stools, foul stool odor, dysuria, increased urine frequency, foul urine odor, and urine incontinence. Denies fever, chest pain, and shortness of breath. Per rn long term care, in the last 4-5 days, patient has had difficulty getting out of bed, not being able to eat, and having dry heaves. Patient has been also disoriented and delirious per rn long term care. operations manager states that patient has had difficulty managing things, fatigue, and recent weight loss in the last several weeks. Per rn long term care, patient's family was concerned about elevated white blood count since July 2018. operations manager reports that there is a strong urine odor in patient's house. operations manager was hired by patient's family 2 days ago per rn long term care. Patient sees Dr. Harkins GI, with whom patient has had an endoscopy that showed a fungal infection which was treated with an antibiotic that made patient feel sick. Since then, patient reports to have had general abdominal cramping. Patient states she had CT scan done 1 month ago which was negative. She has an upcoming GI appointment on 12/31/18. Last saw primary care provider several weeks ago. No recent travel, no recent abx Patient lives alone at home. Her 3 months ago and one of her close friend 6 months ago. Patient states she feels lonely. Patient does not use a walker or cane to walk. Patient does not have services in her home. Patient has a step-daughter and son living in [place] and daughter living in [place]. Patients medication reviewed this visit. - History Of Current Complaint Chief Complaint: EDGeneral Time Seen by Provider: 12/29/18 14:06 Hx Obtained From: Patient, Family/Irrigation Laborer - caseworker intake Eliza Onset/Duration: Lasting Weeks, Still Present Timing: Intermittent, Lasting: Severity Currently: None Aggravating Factor(s): Nothing Alleviating Factor(s): Nothing Associated Signs And Symptoms: Positive: Other - Allergies/Home Medications Allergies/Adverse Reactions: Allergies Allergy/AdvReac Type Severity Reaction Status Date / Time Iodine and Iodide Containing Allergy Intermediate Wheezing Verified 12/29/18 13: 53 Produc Seasonal Allergies Allergy Mild Congestion Uncoded 10/28/18 13:43 Home Medications: Home Medications Albuterol inh POWDER (NF) [Proair Respiclick] 1 puff INH .1-4 PRN 12/29/18 [ History Confirmed 12/29/18] Dexlansoprazole (NF) [Dexilant (NF)] 60 mg PO DAILY 12/29/18 [History Confirmed 12/29/18] Venlafaxine CAP (NF) [Effexor CAP (NF)] 75 mg PO DAILY 12/29/18 [History Confirmed 12/29/18] PMH/Surg Hx/FS Hx/Imm Hx Previously Healthy: Yes Endocrine/Hematology History: Denies: Hx Anticoagulant Therapy, Hx Diabetes, Hx Thyroid Disease Cardiovascular History: Reports: Hx Hypertension Denies: Hx Pacemaker/ICD Respiratory History: Reports: Hx Asthma, Hx Chronic Obstructive Pulmonary Disease (COPD) - Asthma/COPD GI History: Reports: Hx Gastroesophageal Reflux Disease - recent dx, Other GI Disorders - 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 Denies: Hx Ulcer History: Denies: Hx Kidney Infection, Hx Kidney Stones, Hx Renal Disease Sensory History: Reports: Hx Cataracts - sx corrected them, Hx Contacts or Glasses - reading only Denies: Hx Eye Injury, Hx Eye Prosthesis, Hx Deafness, Hx Hearing Aid Opthamlomology History: Reports: Hx Cataracts - sx corrected them, Hx Contacts or Glasses - reading only Denies: Hx Eye Injury, Hx Eye Prosthesis Neurological History: Reports: Other Neuro Impairments/Disorders - vertigo Denies: Hx Dementia, Hx Seizures Psychiatric History: Reports: Hx Depression Denies: Hx Substance Abuse - Cancer History Cancer Type, Location and Year: Melanoma removed from left upper chest 8 years ago Hx Chemotherapy: No Hx Radiation Therapy: No - Surgical History Surgery Procedure, Year, and Place: hysterectomy,breast reduction, gastric hernia, Tonsillectomy, adniodectomy, APPENDECTOMY Infectious Disease History: No Infectious Disease History: Denies: Hx Hepatitis, Hx Human Immunodeficiency Virus (HIV), History Other Infectious Disease, Traveled Outside the [place] in Last 30 Days - Family History Known Family History: Positive: Non-Contributory Negative: Cardiac Disease, Hypertension - Social History Occupation: Retired Lives: Alone Alcohol Use: Daily Alcohol Amount: wine or liquor- 2-3 drinks per day Hx Substance Use: No Substance Use Type: Reports: None Hx Tobacco Use: Yes Smoking Status (MU): Former Smoker Type: Cigarettes Amount Used/How Often: 1/2 ppd Length of Time of Smoking/Using Tobacco: 25 years Review of Systems Positive: Fatigue. Negative: Fever Negative: Chest Pain Negative: Shortness Of Breath Gastrointestinal: Negative - bloody stools, foul stool odor Positive: Abdominal Pain, Diarrhea, Nausea, Other - decreased appetite, recent weight loss, dry heaving Genitourinary: Negative - foul urine odor Negative: dysuria, frequency, incontinence All Other Systems Reviewed And Are Negative: Yes Physical Exam - Summary Physical Exam Summary: Vital Signs Reviewed: Yes A+Ox3, pleasant, no distress, easily adjusts, changes position in bed Eyes: Conjunctiva Clear, DONOVAN. EOM intact and full ENT: Hearing grossly normal TM x 2 clear, mmoist, uvula midline, no exudate, no erythema Neck: Positive: Supple Respiratory: Positive: No respiratory distress, No accessory muscle use + CTA throughout no w/r Cardiovascular: RRR nl s1, s2 no m/r CBT <2 sec abd soft + BS nt/nd no guarding, no distension, minimal abdominal discomfort diffusely, no CVA Musculoskeletal Exam: JONAS x 4 without difficulty Strength Intact, ROM Intact Neurological: Positive: Alert, + sensation throughout Psychological: Positive: Normal Response To fish pitcher Skin: Positive: no rash, no ecchymosis Triage Information Reviewed: Yes Vital Signs On Initial Exam: Initial Vitals Temp Pulse Resp BP Pulse Ox 97.4 F 93 18 130/81 93 12/29/18 13:46 12/29/18 13:46 12/29/18 13:46 12/29/18 13:46 12/29/18 13:46 Vital Signs Reviewed: Yes Diagnostics - Vital Signs Vital Signs Temp Pulse Resp BP Pulse Ox 12/29/18 13:46 97.4 F 93 18 130/81 93 - Laboratory Lab Results: Lab Results 12/29/18 Range/Units 14:19 WBC 10.3 (3.5-10.8) 10^3/uL RBC 4.84 (3.70-4.87) 10^6 /uL Hgb 13.5 (12.0-16.0) g/dL Hct 41 (35-47) % MCV 85 (80-97) fL MCH 28 (27-31) pg MCHC 33 (31-36) g/dL RDW 17 H (10-15) % Plt Count 693 H (150-450) 10^3/uL MPV 7.1 L (7.4-10.4) fL Neut % (Auto) 66.8 % Lymph % (Auto) 20.7 % [place] % (Auto) 11.2 % Eos % (Auto) 0.4 % Baso % (Auto) 0.9 % Absolute Neuts (auto) 6.9 (1.5-7.7) 10^3/ul Absolute Lymphs (auto) 2.1 (1.0-4.8) 10^3/ul Absolute Monos (auto) 1.2 H (0-0.8) 10^3/ul Absolute Eos (auto) 0.0 (0-0.6) 10^3/ul Absolute Basos (auto) 0.1 (0-0.2) 10^3/ul Absolute Nucleated RBC 0.0 10^3/ul Nucleated RBC % 0.1 Result Diagrams: 12/29/18 14:19 12/29/18 14:19 Lab Statement: Any lab studies that have been ordered have been reviewed, and results considered in the medical decision making process. - CT Abdomen/Pelvis CT Interpretation Completed By: Radiologist Summary of CT Findings: 1. Moderate length segment moderate mural thickening of the mid to distal transverse colon is new compared with the prior exam. Mild associated perienteric fat reticulation. Inflammatory colitis would be most likely. Ischemic colitis is not excluded. Correlate with clinical assessment. 2. Mild predominant anterior column osteoporotic compression fracture of the L1 vertebral body is new compared with the November 07, 2018 exam. Negative for associated paravertebral hematoma. ED physician has reviewed this report. - EKG 1453 Cardiac Rate: NL - 77 BPM EKG Rhythm: Sinus Rhythm Summary of EKG Findings: sinus 77 BPM. flat T waves laterally. no ST elevations Re-Evaluation - Re-Evaluation First Eval Re-Evaluation Time: 15:51 Comment: pt is willing to try to use commonde - declined analgesia. reviewed labs - mag and potassium slightly low, will replete. #2 eval - pt with + uti - will give rocephin, pt vomited x1 from contrast - will give zofran. #3 pt states zofran was "like magic". #[address] with pt's GI - after discussion , will d/c home with Rx augmentin, zofran- has appt on Thursday Low suspicion for ischemic colitis - normal lactic acid, not pain out preportion Second Eval Re-Evaluation Time: 18:47 Comment: #[address] with pt and rn coronary care unit - discussed both colitis and compression fracture - pt denies fall - denies back pain. d/w her clears to bland brat diet. f/u GI Thursday. strict return precaution. Strong recommend pt also see her counselor. suspect some of her sx are atributed to her some grief reaction related to the loss of her and best friend. encouraged pt to return if persistent pain, vomiting, fevers, or any other concerns. discussed discharge plan. pt agreeable to discharge. pt agrees to follow up with her scheduled appointment on 12/31/[address] Harkins Complex Multi-Symp Course/Dx Assessment/Plan: Patient presents to emergency Department with her care providers. Patient states over the last 6 weeks she's been having diffuse abdominal pain. Patient states she feels weak and has no appetite. Patient states whenever she does eat something she has diarrhea. No blood no black. Patient denies fevers or chills. Patient denies vomiting but states she has nausea. Patient has seen her primary for this. Patient is also seen GI where she had an upper endoscopy as well as CT approximately one month ago that showed no acute findings. Patient without fevers or chills. Patient's concerned she is getting dehydrated and progressively weak. On exam vital signs are stable. Patient does not appear dehydrated clinically. We'll check some labs urine and likely CT. We'll give patient's gentle IV fluids. Offered patient antiemetics if she needs however she declined at the time of initial evaluation. Patient and caregivers comfortable in agreement with plan. We'll reassess. I did discuss with pt some of her symptoms may be exacerbated by grief reaction given loss of her and friend - pt states agreement with this possibility - Diagnoses Provider Diagnoses: Colitis, Compression fracture of spine, non-traumatic - Physician Notifications Discussed Care Of Patient With: Danielle Harkins Time Discussed With Above Provider: 18:39 Instructed by Provider To: Other - Dr. Harkins, GI, recommends discharging pt home with prescription for Augmentin and Zofran and with follow up from Dr. Harkins on 12/31/18 as scheduled. Discharge - Sign-Out/Discharge Documenting (check all that apply): Patient Departure - Discharge Patient Received Moderate/Deep Sedation with Procedure: No - Discharge Plan Condition: Stable Disposition: HOME Prescriptions: Amoxicillin/Clavulanate TAB* [Augmentin TAB 875*] 875 mg PO BID #14 tab Ondansetron ODT TAB* [Zofran 4 MG Odt TAB*] 4 mg PO Q6H PRN #15 tab.odt PRN Reason: Nausea Patient Education Materials: Vertebral Compression Fracture (ED), Colitis (ED) Referrals: Lavonne Warren MD [Primary Care Provider] - Additional Instructions: - Take antibioitcs as prescribed until gone -Okay to take Nausea medicaition as prescribed every 6 hours - Kepe your appointment with the GI specialist as Scheduled - It is recommended you schedule follow-up appointment with your community education specialist and mental health counselor contact your doctor, GI specialist, or return to the emergency department with questions or concerns - Billing Disposition and Condition Condition: STABLE Disposition: Home - Attestation Statements Document Initiated by Elena: Yes Documenting Scribe: Elvira Pham Provider For Whom Elena is Documenting (Include Credential): Trish Parmar MD Scribe Attestation: Elvira Walton, scribed for Trish Parmar MD on 12/31/18 at 1942. Scribe Documentation Reviewed: Yes Provider Attestation: The documentation as recorded by the Elvira jauregui accurately reflects the service I personally performed and the decisions made by me, Trish Parmar MD Status of Scribe Document: Viewed
[2018-12-29 14:42] LABS: Albumin 3.2 g/dL (3.2-5.2); Albumin/Globulin Ratio 1.2 (1-3); BUN/Creatinine Ratio 9.8 (8-20); EGFR African American 80.8 (>60); EGFR Non-African American 66.7 (>60); Globulin 2.6 g/dL (2-4); Magnesium 1.8 mg/dL (1.9-2.7); Potassium 3.4 mmol/L (3.5-5.0); Total Bilirubin 0.3 mg/dL (0.2-1.0); Total Protein 5.8 g/dL (6.4-8.9)
[2018-12-29 15:22] LABS: TSH (Thyroid Stimulating Horm) 1.19 mcIU/mL (0.34-5.60)
[2018-12-29] MEDS ORDERED: NS 0.9% 1000 ML** 1,000 ML IV SCH (15:30)
[2018-12-29] MEDS ORDERED: Magnesium Sulfate 2 GM IV* 2 GM/50 ML BAG IVPB ONE (15:51)
[2018-12-29] MEDS ORDERED: Potassium Chlor TAB* 20 MEQ TAB.ER PO ONE (15:51)
[2018-12-29 16:26] LABS: Urine Appearance Clear; Urine Bacteria Absent (Absent); Urine Bilirubin Negative (Negative); Urine Blood Negative (Negative); Urine Color Yellow; Urine Glucose Negative (Negative); Urine Ketones Negative (Negative); Urine Nitrite Negative (Negative); Urine Protein Negative (Negative); Urine Red Blood Cell Trace(0-2/hpf) (Absent); Urine Specific Gravity 1.013 (1.010-1.030); Urine Squamous Epithelial Cell Present (Absent); Urine Urobilinogen Negative (Negative); Urine White Blood Cell 2+(11-20/hpf) (Absent)
[2018-12-29] MEDS ORDERED: cefTRIAXone(*) 1 GM in NS 0.9% 50 ML* 50 ML IVPB ONE (16:39)
[2018-12-29] MEDS ORDERED: Ondansetron INJ* 2 MG/ML VIAL IV ONE (16:39)
[2018-12-29 19:37] VITALS: BP 144/81
[2018-12-29 20:10] LABS: C Reactive Protein 10.5 mg/L (<8.01)
[2018-12-29 21:09] LABS: Erythrocyte Sed Rate 8 mm/Hr (0-29)
== END 2018-12-29 19:37 | disposition home or self-care (01) ==
LOC: ED 13:43
DX: R10.9 Unspecified abdominal pain (principal); I10 Essential (primary) hypertension; K21.9 Gastro-esophageal reflux disease without esophagitis; Z79.899 Other long term (current) drug therapy; Z87.891 Personal history of nicotine dependence; R19.7 Diarrhea, unspecified; R11.10 Vomiting, unspecified; Z85.820 Personal history of malignant melanoma of skin; R53.83 Other fatigue
CPT/HCPCS: 36415; 74176; 80053; 81003; 81015; 82550; 83605; 83735; 84443; 84484; 85025; 85652; 86140; 87086; 93005; 96361; 96365; 96367; 96375; 99284; A9270-GY; J0696; J2405; J3475